=== PATIENT | male | born 1980 | race American Indian/Alaskan Native ===

== ENCOUNTER 2016-07-13 11:49 | Emergency (ER) | payer SELFPAY ==
[2016-07-13 12:16] VITALS: BP 128/92
--- NOTE | 2016-07-13 14:12 | Emergency Department Report ---
ED ENT HPI - General Chief complaint: Earache Stated complaint: DIZZINESS/ POSS EAR INFECTION Time Seen by Provider: 07/13/16 14:04 Source: patient Mode of arrival: Ambulatory Limitations: No Limitations - History of Present Illness MD complaint: ear pain -: Gradual, days(s) - Related Data Previous Rx's Medication Instructions Recorded Last Taken Type Amoxicillin [Amoxicillin TAB] 875 mg PO BID #20 tablet 07/13/16 Unknown Rx Neomy/Polymyx B/Hc (Otic) Soln 4 drops OTIC TID 5 Days 07/13/16 Unknown Rx [Cortisporin (Otic) Soln] Prednisone [predniSONE (Mary) ER 50 mg PO QDAY #5 tablet. 07/13/16 Unknown Rx TAB] traMADol [Ultram 50 MG tab] 50 mg PO Q4HR PRN #12 tablet 07/13/16 Unknown Rx Allergies Allergy/AdvReac Type Severity Reaction Status Date / Time No Known Allergies Allergy Unverified 07/13/16 12:09 ED Dental HPI - General Chief complaint: Earache Stated complaint: DIZZINESS/ POSS EAR INFECTION Time Seen by Provider: 07/13/16 14:04 Source: patient Mode of arrival: Ambulatory Limitations: No Limitations - History of Present Illness MD complaint: tooth pain Severity: moderate Quality: aching Consistency: constant Worsens with: chewing, hot/cold liquids Context- Dental: history of dental caries, poor dental care - Related Data Previous Rx's Medication Instructions Recorded Last Taken Type Amoxicillin [Amoxicillin TAB] 875 mg PO BID #20 tablet 07/13/16 Unknown Rx Neomy/Polymyx B/Hc (Otic) Soln 4 drops OTIC TID 5 Days 07/13/16 Unknown Rx [Cortisporin (Otic) Soln] Prednisone [predniSONE (Mary) ER 50 mg PO QDAY #5 tablet. 07/13/16 Unknown Rx TAB] traMADol [Ultram 50 MG tab] 50 mg PO Q4HR PRN #12 tablet 07/13/16 Unknown Rx Allergies Allergy/AdvReac Type Severity Reaction Status Date / Time No Known Allergies Allergy Unverified 07/13/16 12:09 ED Review of Systems ROS: Stated complaint: DIZZINESS/ POSS EAR INFECTION Other details as noted in HPI Constitutional: denies: chills, fever Eyes: denies: eye pain, eye discharge, vision change ENT: ear pain, throat pain. denies: hearing loss Respiratory: denies: cough, shortness of breath, wheezing Cardiovascular: denies: chest pain, palpitations Endocrine: no symptoms reported Gastrointestinal: denies: abdominal pain, nausea, diarrhea Genitourinary: denies: urgency, dysuria Musculoskeletal: denies: back pain, joint swelling, arthralgia Skin: denies: rash, lesions Neurological: denies: headache, weakness, paresthesias Psychiatric: denies: anxiety, depression Hematological/Lymphatic: denies: easy bleeding, easy bruising ED Past Medical Hx - Surgical History Additional Surgical History: Left Ear - Social History Smoking Status: Never Smoker Substance Use Type: None - Medications Home Medications: Home Medications Medication Instructions Recorded Confirmed Last Taken Type Amoxicillin [Amoxicillin TAB] 875 mg PO BID #20 tablet 07/13/16 Unknown Rx Neomy/Polymyx B/Hc (Otic) Soln 4 drops OTIC TID 5 Days 07/13/16 Unknown Rx [Cortisporin (Otic) Soln] Prednisone [predniSONE (Mary) ER 50 mg PO QDAY #5 tablet.dr 07/13/16 Unknown Rx TAB] traMADol [Ultram 50 MG tab] 50 mg PO Q4HR PRN #12 tablet 07/13/16 Unknown Rx ED Physical Exam - General Limitations: No Limitations General appearance: alert, in no apparent distress - Head Head exam: Present: atraumatic, normocephalic - Eye Eye exam: Present: normal appearance - ENT ENT exam: Present: mucous membranes moist - Expanded ENT Exam Expanded TM/Canal exam: Erythema: Left TM, Bulging: Right TM, Effusion: Right TM, Perforation: Right TM, Loss of Landmarks: Right TM, Foreign Body: Right TM, Cerumen Impaction: Right TM, Mastoid Tenderness: Right TM, Canal Discharge: Right TM, Canal Tenderness: Left TM Throat exam: Positive: tonsillar erythema, tonsillar exudate. Negative: L peritonsillar mass - Neck Neck exam: Present: normal inspection, lymphadenopathy. Absent: tenderness, meningismus, full ROM - Respiratory Respiratory exam: Present: normal lung sounds bilaterally. Absent: respiratory distress - Cardiovascular Cardiovascular Exam: Present: regular rate, normal rhythm. Absent: systolic murmur, diastolic murmur, rubs, gallop - GI/Abdominal GI/Abdominal exam: Present: soft, normal bowel sounds - Rectal Rectal exam: Present: deferred - Extremities Exam Extremities exam: Present: normal inspection - Back Exam Back exam: Present: normal inspection - Neurological Exam Neurological exam: Present: alert, oriented X3 - Psychiatric Psychiatric exam: Present: normal affect, normal mood - Skin Skin exam: Present: warm, dry, intact, normal color. Absent: rash ED Course Vital Signs 07/13/16 12:09 Temperature 97.9 F Pulse Rate 64 Respiratory 18 Rate Blood Pressure 128/92 O2 Sat by Pulse 100 Oximetry Critical care attestation.: If time is entered above; I have spent that time in minutes in the direct care of this critically ill patient, excluding procedure time. ED Disposition Clinical Impression: Tonsillitis Disposition: DISCHARGED TO HOME OR SELFCARE Is pt being admited?: No Condition: Stable Instructions: Otitis Externa (ED) Prescriptions: Amoxicillin [Amoxicillin TAB] 875 mg PO BID #20 tablet Neomy/Polymyx B/Hc (Otic) Soln [Cortisporin (Otic) Soln] 4 drops OTIC TID 5 Days Prednisone [predniSONE (Mary) ER TAB] 50 mg PO QDAY #5 tablet. traMADol [Ultram 50 MG tab] 50 mg PO Q4HR PRN #12 tablet PRN Reason: Pain Referrals: PRIMARY CARE,MD [Primary Care Provider] - 3-5 Days
== END 2016-07-13 15:14 | disposition home or self-care (01) ==
LOC: ED 11:49
DX: J03.90 Acute tonsillitis, unspecified (principal); H92.09 Otalgia, unspecified ear; R42 Dizziness and giddiness; Z98.890 Other specified postprocedural states
CPT/HCPCS: 99282

== ENCOUNTER 2016-08-26 18:54 | Emergency (ER) | payer SELFPAY | END 2016-08-26 19:30 | disposition left against medical advice (07) | LOC: ED 18:54 | DX: R20.0 Anesthesia of skin (principal); Z53.21 Procedure and treatment not carried out due to patient leaving prior to being seen by health care provider ==

== ENCOUNTER 2016-08-27 12:42 | Emergency (ER) | payer SELFPAY ==
[2016-08-27 14:04] VITALS: BP 141/97
--- NOTE | 2016-08-27 14:58 | Emergency Department Report ---
Upper Extremity - [facility] Chief Complaint: Pain General Stated Complaint: NUMBNESS LEFT ARM AND SHOULDER Time Seen by Provider: 08/27/16 14:48 Upper Extremity: Left Shoulder (pain with numbness radiating down to her forearm from left shoulder.) Occurred When: >5 Days (chronic) Mechanism: Unsure (patient said he thinks because he lifts heavy objects at work ) Severity: mild Symptoms: Yes Pain with Movement (shoulder left), Yes Limited Range of Movement (left shoulder), Yes Numbness (numbness radiating down to left forearm), No Deformity, No Weakness, No Swelling, No Bruising/Ecchymosis, No Laceration or Abrasion Other History: Seen here reports that he had left shoulder and arm pain for over the past week that has flared up. He said he said this in the past from injury at work. Patient said he lifts heavy objects at work. He said he can shake it has arm and it makes the pain go away. Denies any loss of sensation. Denies any fever or chills. Pain is 5 out of 10 and achy. ED Review of Systems ROS: Stated complaint: NUMBNESS LEFT ARM AND SHOULDER Other details as noted in HPI Comment: All other systems reviewed and negative Constitutional: denies: chills, fever Respiratory: no symptoms reported Cardiovascular: denies: chest pain, palpitations, edema, syncope Gastrointestinal: denies: abdominal pain, nausea, vomiting Musculoskeletal: arthralgia. denies: back pain, joint swelling, myalgia Skin: denies: rash Neurological: numbness. denies: headache, weakness, paresthesias, confusion, abnormal gait, vertigo ED Past Medical Hx - Past Medical History Previous Medical History?: No - Surgical History Past Surgical History?: Yes Additional Surgical History: Left Ear - Family History Family history: no significant - Social History Smoking Status: Never Smoker Substance Use Type: None - Medications Home Medications: Home Medications Medication Instructions Recorded Confirmed Last Taken Type Amoxicillin [Amoxicillin TAB] 875 mg PO BID #20 tablet 07/13/16 Unknown Rx Neomy/Polymyx B/Hc (Otic) Soln 4 drops OTIC TID 5 Days 07/13/16 Unknown Rx [Cortisporin (Otic) Soln] Prednisone [predniSONE (Mary) ER 50 mg PO QDAY #5 tablet. 07/13/16 Unknown Rx TAB] traMADol [Ultram 50 MG tab] 50 mg PO Q4HR PRN #12 tablet 08/27/16 Unknown Rx Upper Extremity Exam - Exam General: Vital signs noted. No distress. Alert and acting appropriately. This is a 6-year-old male well-nourished well-developed in no acute distress. Head and Torso: No HEENT Abnormality, No Neck Tenderness, No Chest/Lungs Abnormality, No Abdominal Tenderness, No Back Tenderness Shoulder Exam: Yes Normal Range of Motion in Shoulder (patient has full range of motion to her shoulder but he said it hurts to move his left shoulder), No Shoulder Tenderness, No Clavicle Tenderness, No Shoulder Deformity, No AC Joint Tenderness Arm Exam: No Arm/Humerus Tenderness, No Arm Deformity Elbow: Yes Normal Range of Motion in Elbow, No Elbow Tenderness, No Elbow Deformity Forearm: No Forearm Tenderness, No Forearm Deformity, No Pain with Pronation, No Pain with Supination Wrist: Yes Normal ROM in Wrist, No Wrist Tenderness, No Wrist Deformity, No Snuffbox Tenderness, No Pain with Axial Thumb Compression Hand: Yes Normal ROM in Digit(s), No Hand Tenderness, No Hand Deformity, No Digit Tenderness, No Digit(s) Deformity, No Tendon Dysfunction CMS Exam: Yes Normal Distal Pulses, Yes Normal Capillary Refill, Yes Normal Distal Sensation, No Broken Skin ED Course Vital Signs 08/27/16 14:02 Temperature 98.1 F Pulse Rate 68 Respiratory 18 Rate Blood Pressure 141/97 O2 Sat by Pulse 100 Oximetry - Reevaluation(s) Reevaluation #1: 08/27/16 16:37 Given Decadron 10 mg IM and emergency room. ED Medical Decision Making - Medical Decision Making ED course: She was arthralgia left shoulder and also radiculopathy. This is chronic in nature and patient was referred to orthopedic doctor in the past but he said he didn't go. I discussed with him that it is important for him to follow up with orthopedic doctor because she may need an MRI to look at his shoulder for rotator cuff injury. Patient is given Decadron 10 mg IM and discharged home with prescription for Ultram. Critical care attestation.: If time is entered above; I have spent that time in minutes in the direct care of this critically ill patient, excluding procedure time. ED Disposition Clinical Impression: Arthralgia of left shoulder region, Radicular pain of left upper extremity Disposition: DISCHARGED TO HOME OR SELFCARE Is pt being admited?: No Does the pt Need Aspirin: No Condition: Stable Instructions: Paresthesia (ED), Arthralgia (ED) Additional Instructions: Please follow up with Orthopedic Doctor as instructed Take pain medicine as instructed Prescriptions: traMADol [Ultram 50 MG tab] 50 mg PO Q4HR PRN #12 tablet PRN Reason: Pain Referrals: RYAN AUSTIN MD [Staff Physician] - 08/30/16 Forms: Work/School Release Form(ED)
[2016-08-27] MEDS ORDERED: DECADRON IM STA (14:59)
== END 2016-08-27 17:08 | disposition home or self-care (01) ==
LOC: ED 12:42
DX: M25.512 Pain in left shoulder (principal); M54.10 Radiculopathy, site unspecified
CPT/HCPCS: 96372; 99282; J1100

== ENCOUNTER 2016-09-30 14:39 | Emergency (ER) | payer BC, OTHER ==
[2016-09-30 14:58] VITALS: BP 143/96
[2016-09-30] MEDS ORDERED: MOTRIN PO ONE (16:43)
[2016-09-30] MEDS ORDERED: FLEXERIL PO ONE (16:43)
--- NOTE | 2016-09-30 17:03 | Emergency Department Report ---
Entered by COCO COTA, acting as scribe for DARSHAN RYAN PA. ED Upper Extremity Inj HPI - General Chief Complaint: Shoulder Injury Stated Complaint: DISLOCATED LT SHOULDER Time Seen by Provider: 09/30/16 16:16 Source: patient Mode of arrival: Ambulatory Limitations: No Limitations - History of Present Illness Initial Comments: 36 y/o male patient with no significant PMHx presents to the ED c/o left shoulder pain that began 2 weeks ago. Patient states his pain was caused by lifting boxes at work. Rates pain a 10/10 in severity, which he describes as sharp in quality. Aggravated with movement and alleviated with immobilization. Denies neck pain, weakness, numbness, and tingling. Took Extra Strength Tylenol with some relief. Patient notes that he has an appointment on 10/04/2016 for left shoulder. NKDA. CAIN Complaint: Injury to:: left, shoulder Onset/Timin -: week(s) Other Extremity Injury: Shoulder: Left Other Injuries: none Handedness: right Place: work Severity scale (0 -10): 10 Improves With: immobilization, medication (Extra strength Tylenol) Worsens With: movement of extremity Context: other (lifting boxes daily) Associated Symptoms: denies other symptoms. denies: weakness, numbness, neck pain, nausea/vomiting, heard/felt popping sensat - Related Data Previous Rx's Medication Instructions Recorded Last Taken Type Amoxicillin [Amoxicillin TAB] 875 mg PO BID #20 tablet 07/13/16 Unknown Rx Neomy/Polymyx B/Hc (Otic) Soln 4 drops OTIC TID 5 Days 07/13/16 Unknown Rx [Cortisporin (Otic) Soln] Prednisone [predniSONE (Mary) ER 50 mg PO QDAY #5 tablet. 07/13/16 Unknown Rx TAB] traMADol [Ultram 50 MG tab] 50 mg PO Q4HR PRN #12 tablet 08/27/16 Unknown Rx Cyclobenzaprine [Flexeril 10 MG 10 mg PO QHS #20 tablet 09/30/16 Unknown Rx TAB] Diclofenac Sodium 50 mg PO BID #30 tablet. 09/30/16 Unknown Rx Allergies Allergy/AdvReac Type Severity Reaction Status Date / Time No Known Allergies Allergy Unverified 07/13/16 12:09 ED Review of Systems Comment: All other systems reviewed and negative Constitutional: no symptoms reported. denies: chills, fever Respiratory: no symptoms reported. denies: cough, shortness of breath, wheezing Cardiovascular: denies: chest pain, palpitations Endocrine: no symptoms reported Musculoskeletal: arthralgia (left shoulder pain). denies: back pain, joint swelling, other (neck pain) Skin: denies: rash, lesions Neurological: denies: headache, weakness, numbness ED Past Medical Hx - Past Medical History Previous Medical History?: No - Surgical History Past Surgical History?: Yes Additional Surgical History: Left Ear - Social History Smoking Status: Never Smoker Substance Use Type: None - Medications Home Medications: Home Medications Medication Instructions Recorded Confirmed Last Taken Type Amoxicillin [Amoxicillin TAB] 875 mg PO BID #20 tablet 07/13/16 Unknown Rx Neomy/Polymyx B/Hc (Otic) Soln 4 drops OTIC TID 5 Days 07/13/16 Unknown Rx [Cortisporin (Otic) Soln] Prednisone [predniSONE (Mary) ER 50 mg PO QDAY #5 tablet. 07/13/16 Unknown Rx TAB] traMADol [Ultram 50 MG tab] 50 mg PO Q4HR PRN #12 tablet 08/27/16 Unknown Rx Cyclobenzaprine [Flexeril 10 MG 10 mg PO QHS #20 tablet 09/30/16 Unknown Rx TAB] Diclofenac Sodium 50 mg PO BID #30 tablet. 09/30/16 Unknown Rx ED Physical Exam - General Limitations: No Limitations General appearance: alert, in no apparent distress - Head Head exam: Present: atraumatic, normocephalic - Eye Eye exam: Present: normal appearance, EOMI Pupils: Present: normal accommodation - ENT ENT exam: Present: normal exam, mucous membranes moist - Neck Neck exam: Present: normal inspection, full ROM. Absent: tenderness, meningismus, lymphadenopathy - Respiratory Respiratory exam: Present: normal lung sounds bilaterally. Absent: respiratory distress, wheezes, rales, rhonchi, stridor - Cardiovascular Cardiovascular Exam: Present: regular rate, normal rhythm. Absent: systolic murmur, diastolic murmur, rubs, gallop - GI/Abdominal GI/Abdominal exam: Present: soft, normal bowel sounds - Extremities Exam Extremities exam: Present: full ROM (limited ROM in left shoulder due to pain), tenderness (left shoulder tenderness), normal capillary refill. Absent: pedal edema, joint swelling - Expanded Upper Extremity Exam Left Shoulder Exam: Present: full ROM (limited ROM due to left shoulder pain), tenderness. Absent: swelling, abrasion, laceration, ecchymosis, deformity, crepidus, dislocation, erythema, tenderness over AC joint Upper Arm exam: Present: normal inspection, full ROM Elbow exam: Present: normal inspection, full ROM Forearm Wrist exam: Present: normal inspection, full ROM Hand Wrist exam: Present: normal inspection, full ROM Neuro motor exam: Present: wrist extension intact, thumb opposition intact, thumb IP flexion intact, thumb adduction intact, fingers 2-5 abduction intact Neurosensory exam: Present: 2-point discrimination, radial nerve intact, ulnar nerve intact, median nerve intact Vascular: Present: normal capillary refill, radial pulse (2+), brachial pulse (2 +), ulnar pulse (2+). Absent: vascular compromise, Pallo, pulse deficit radial art, pulse deficit ulnar art, pulse deficit brachial art - Back Exam Back exam: Present: normal inspection - Neurological Exam Neurological exam: Present: alert, oriented X3 - Psychiatric Psychiatric exam: Present: normal affect, normal mood - Skin Skin exam: Present: warm, dry, intact. Absent: rash ED Course Vital Signs 09/30/16 14:55 Temperature 97.6 F Pulse Rate 87 Respiratory 18 Rate Blood Pressure 143/96 O2 Sat by Pulse 99 Oximetry ED Medical Decision Making - Medical Decision Making 36-year-old male presents with left shoulder pain for 2 weeks. ED course: Patient was given a muscle relaxer and Motrin in ED . Patient is not ill-appearing. Discussed the follow-up with his scheduled appointment with orthopedic on 2016. Discuss his symptoms return or worsen to return to the ED Patient states understanding and will follow instructions. Vital signs stable. Patient is in no acute distress. ED Disposition Clinical Impression: Muscle strain of left shoulder Qualifiers: Encounter type: initial encounter Qualified Code(s): S46.912A - Strain of unspecified muscle, fascia and tendon at shoulder and upper arm level, left arm , initial encounter Disposition: TO HOME OR SELFCARE Is pt being admited?: No Does the pt Need Aspirin: No Condition: Stable Instructions: Rotator Cuff Injury (ED), Muscle Strain (ED), Musculoskeletal Pain (ED) Prescriptions: Cyclobenzaprine [Flexeril 10 MG TAB] 10 mg PO QHS #20 tablet Diclofenac Sodium 50 mg PO BID #30 tablet. Referrals: PRIMARY CARE, [Primary Care Provider] - 3-5 Days [facility] [Outside] - 3-5 Days [facility] [Outside] - 3-5 Days [facility] [Outside] - 3-5 Days Forms: Accompanied Note, Work/School Release Form(ED) Time of Disposition: 17:01 This documentation as recorded by the CIPRIANO colby JASMINE,accurately reflects the service I personally performed and the decisions made by ,DARSHAN RYAN PA.
== END 2016-09-30 17:10 | disposition home or self-care (01) ==
LOC: ED 14:39
DX: S46.912A Strain of unspecified muscle, fascia and tendon at shoulder and upper arm level, left arm, initial encounter (principal); X50.0XXA Overexertion from strenuous movement or load, initial encounter; X50.9XXA Other and unspecified overexertion or strenuous movements or postures, initial encounter; Y93.89 Activity, other specified; Y99.8 Other external cause status; Y92.89 Other specified places as the place of occurrence of the external cause
CPT/HCPCS: 99282

== ENCOUNTER 2017-08-31 18:52 | Emergency (ER) | payer SELFPAY ==
[2017-08-31 19:22] VITALS: BP 141/101
[2017-08-31] MEDS ORDERED: DECADRON ONE (19:25)
[2017-08-31] MEDS ORDERED: BENADRYL PO ONE ×2 (19:25→19:37)
[2017-08-31] MEDS ORDERED: PEPCID ONE (19:25)
[2017-08-31] MEDS ORDERED: PEPCID PO ONE (19:37)
[2017-08-31] MEDS ORDERED: DECADRON IM ONE (19:37)
== END 2017-08-31 23:36 | disposition left against medical advice (07) ==
LOC: ED 18:52
DX: R22.0 Localized swelling, mass and lump, head (principal); Z53.21 Procedure and treatment not carried out due to patient leaving prior to being seen by health care provider
CPT/HCPCS: J1100

== ENCOUNTER 2018-06-07 19:48 | Emergency (ER) | payer MEDICARE ==
--- NOTE | 2018-06-07 19:57 | Emergency Department Report ---
Blank Doc - Documentation Documentation: This is a 37-year-old male that presents with URI symptoms. Denies any cough. Denies any other complaints. This initial assessment diagnostic orders/clinical plan/treatment(s) is/are subject to change based on patient's health status, clinical progression and re- assessment by fellow clinical providers in the ED. Further treatment and workup at subsequent clinical providers discretion. Patient/guardians urged not to elope from ED s their condition may be serious if not clinically assessed and managed. Initial orders include: 1-Patient sent to MAIN for further evaluation and treatment
[2018-06-07 19:58] VITALS: BP 138/100
[2018-06-07] MEDS ORDERED: TYLENOL PO ONE (20:46)
[2018-06-07] MEDS ORDERED: MUCINEX ER PO ONE (20:46)
[2018-06-07] MEDS ORDERED: IBUPROFEN PO ONE (20:46)
--- NOTE | 2018-06-07 20:47 | Emergency Department Report ---
ED General Adult HPI - General Chief complaint: Upper Respiratory Infection Stated complaint: COLD SX EAR ACHE Time Seen by Provider: 06/07/18 19:55 Source: patient, RN notes reviewed Mode of arrival: Ambulatory Limitations: No Limitations - History of Present Illness Initial comments: This is a pleasant 37-year-old gentleman, not known to this provider previously, does not have a primary care doctor. The patient presents to the emergency room with a sensation of head congestion, ears congestion, runny nose with mucus. Symptoms present for the past week. No relief with [id number] interventions. The patient endorses sick contacts in his significant other, who is also a patient today, I also took care of, who also has similar symptoms. Symptoms intermittent, did not radiate anywhere, did not appear to have exacerbating or relieving factors. Denies other complaints. -: Gradual Location: head, face, mouth Radiation: non-radiation Severity scale (0 -10): 8 Quality: aching Consistency: intermittent Improves with: other Worsens with: other Associated Symptoms: cough, malaise. denies: confusion, chest pain, diaphoresis, fever/chills, headaches, loss of appetite, nausea/vomiting, rash, seizure, shortness of breath, syncope, weakness - Related Data Previous Rx's Medication Instructions Recorded Last Taken Type Amoxicillin [Amoxicillin TAB] 875 mg PO BID #20 tablet 07/13/16 Unknown Rx Neomy/Polymyx B/Hc (Otic) Soln 4 drops OTIC TID 5 Days bottle 07/13/16 Unknown Rx [Cortisporin (Otic) Soln] Prednisone [predniSONE (Mary) ER 50 mg PO QDAY #5 tablet. 07/13/16 Unknown Rx TAB] traMADol [Ultram 50 MG tab] 50 mg PO Q4HR PRN #12 tablet 08/27/16 Unknown Rx Cyclobenzaprine [Flexeril 10 MG 10 mg PO QHS #20 tablet 09/30/16 Unknown Rx TAB] Diclofenac Sodium 50 mg PO BID #30 tablet. 09/30/16 Unknown Rx Azithromycin [Zithromax Z-BENJI] 250 mg PO DAILY #6 tab 04/15/18 Unknown Rx Acetaminophen [Tylenol Arthritis] 650 mg PO Q6HR PRN #30 tablet.er 06/07/18 Unknown Rx Chlorhexidine Mouthwash [Peridex] 15 ml MM BID #1 bottle 06/07/18 Unknown Rx Fluticasone [Flonase] 1 spray NS QDAY #1 bottle 06/07/18 Unknown Rx Ibuprofen [Motrin] 600 mg PO Q8H PRN #30 tablet 06/07/18 Unknown Rx guaiFENesin [Mucinex] 600 mg PO BID #30 tab.er.12h 06/07/18 Unknown Rx Allergies Allergy/AdvReac Type Severity Reaction Status Date / Time No Known Allergies Allergy Unverified 07/13/16 12:09 ED Review of Systems ROS: Stated complaint: COLD SX EAR ACHE Other details as noted in HPI Constitutional: malaise. denies: fever Eyes: denies: eye discharge ENT: congestion. denies: throat pain, epistaxis Respiratory: cough Cardiovascular: denies: chest pain Gastrointestinal: denies: abdominal pain Musculoskeletal: denies: back pain Neurological: weakness ED Past Medical Hx - Past Medical History Previous Medical History?: No - Surgical History Additional Surgical History: Left Ear - Social History Smoking Status: Never Smoker Substance Use Type: None - Medications Home Medications: Home Medications Medication Instructions Recorded Confirmed Last Taken Type Amoxicillin [Amoxicillin TAB] 875 mg PO BID #20 tablet 07/13/16 Unknown Rx Neomy/Polymyx B/Hc (Otic) Soln 4 drops OTIC TID 5 Days bottle 07/13/16 Unknown Rx [Cortisporin (Otic) Soln] Prednisone [predniSONE (Mary) ER 50 mg PO QDAY #5 tablet. 07/13/16 Unknown Rx TAB] traMADol [Ultram 50 MG tab] 50 mg PO Q4HR PRN #12 tablet 08/27/16 Unknown Rx Cyclobenzaprine [Flexeril 10 MG 10 mg PO QHS #20 tablet 09/30/16 Unknown Rx TAB] Diclofenac Sodium 50 mg PO BID #30 tablet. 09/30/16 Unknown Rx Azithromycin [Zithromax Z-BENJI] 250 mg PO DAILY #6 tab 04/15/18 Unknown Rx Acetaminophen [Tylenol Arthritis] 650 mg PO Q6HR PRN #30 tablet.er 06/07/18 Unknown Rx Chlorhexidine Mouthwash [Peridex] 15 ml MM BID #1 bottle 06/07/18 Unknown Rx Fluticasone [Flonase] 1 spray NS QDAY #1 bottle 06/07/18 Unknown Rx Ibuprofen [Motrin] 600 mg PO Q8H PRN #30 tablet 06/07/18 Unknown Rx guaiFENesin [Mucinex] 600 mg PO BID #30 tab.er.12h 06/07/18 Unknown Rx ED Physical Exam - General Limitations: No Limitations General appearance: alert, in no apparent distress - Head Head exam: Present: atraumatic, normocephalic - Eye Eye exam: Present: normal appearance, PERRL, EOMI. Absent: nystagmus - ENT ENT exam: Present: normal exam, normal orophraynx, mucous membranes moist, TM's normal bilaterally, normal external ear exam, other (patient has poor dentition. Patient has a fracture in tooth #17. Appears to be chronic. There is no gingival abscess. There is no stridor or dysphonia.) - Neck Neck exam: Present: normal inspection, full ROM. Absent: tenderness, meningismus - Respiratory Respiratory exam: Present: normal lung sounds bilaterally. Absent: respiratory distress - Cardiovascular Cardiovascular Exam: Present: regular rate, normal rhythm, normal heart sounds. Absent: bradycardia, tachycardia, irregular rhythm, systolic murmur, diastolic murmur, rubs, gallop - GI/Abdominal GI/Abdominal exam: Present: soft. Absent: distended, tenderness, guarding, rebound, rigid, pulsatile mass - Rectal Rectal exam: Present: deferred - Extremities Exam Extremities exam: Present: normal inspection, full ROM, other (2+ pulses noted in the bilateral upper, lower extremities. Compartments soft. No long bony tenderness. The pelvis is stable.). Absent: pedal edema, joint swelling, calf tenderness - Back Exam Back exam: Present: normal inspection, full ROM. Absent: paraspinal tenderness, vertebral tenderness - Neurological Exam Neurological exam: Present: alert, oriented X3, CN II-XII intact, normal gait, other (Extraocular movements intact. Tongue midline. No facial droop. Facial sensation intact to light touch in the V1, V2, V3 distribution bilaterally. 5 and 5 strength in 4 extremities.. Sensation is intact to light touch in 4 extremities.). Absent: motor sensory deficit - Psychiatric Psychiatric exam: Present: normal affect, normal mood - Skin Skin exam: Present: warm, dry, intact, normal color. Absent: rash ED Course Vital Signs 06/07/18 19:54 Temperature 97.7 F Pulse Rate 73 Respiratory 16 Rate Blood Pressure 138/100 O2 Sat by Pulse 97 Oximetry ED Medical Decision Making - Lab Data Vital Signs 06/07/18 19:54 Temperature 97.7 F Pulse Rate 73 Respiratory 16 Rate Blood Pressure 138/100 O2 Sat by Pulse 97 Oximetry - Medical Decision Making Differential diagnosis, including but not limited to: Viral syndrome, upper respiratory tract infection, dental caries Assessment and plan: 37-year-old gentleman who is well appearing with probable upper respiratory tract infection, viral syndrome, and chronic dental Carlita. The patient is afebrile, with reassuring vital signs, and in no acute distress. Patient given appropriate guidance and anticipatory counseling. He will be discharged with medications for symptoms, he is counseled to use a vaporizer, humidifier, or inhale shower steam, and to follow up with a dentist for his dental carry. He does not appear to have an emergent medical condition at this time, and he is suitable to follow-up as an outpatient. Critical care attestation.: If time is entered above; I have spent that time in minutes in the direct care of this critically ill patient, excluding procedure time. ED Disposition Clinical Impression: Dental caries, URI (upper respiratory infection) Disposition: DC-01 TO HOME OR SELFCARE Is pt being admited?: No Does the pt Need Aspirin: No Condition: Good Instructions: Viral Syndrome (ED) Additional Instructions: Take the medications as needed/directed. Symptoms likely stemming from cold/virus, and do not currently represent a dangerous or life-threatening condition. Symptoms will likely last 3-4 weeks. Use vaporizer, humidifier as directed. Follow up with the primary care doctor within the next month. Follow up with a dentist within the next month. Return to the emergency room right away with new, worsening or different symptoms. Referrals: [facility] [Provider Group] - as needed MARIEBLL BONNER MD [Primary Care Provider] - as needed [facility] [Outside] - as needed
== END 2018-06-07 21:21 | disposition home or self-care (01) ==
LOC: ED 19:48
DX: K02.9 Dental caries, unspecified (principal); J06.9 Acute upper respiratory infection, unspecified
CPT/HCPCS: 99282

== ENCOUNTER 2018-08-28 14:03 | Emergency (ER) | payer MEDICAID, MEDICARE ==
[2018-08-28 14:25] VITALS: BP 144/88
--- NOTE | 2018-08-28 16:17 | Emergency Department Report ---
ED Back Pain/Injury HPI - General Chief Complaint: Back Pain/Injury Stated Complaint: LOWER BACK PAIN Time Seen by Provider: 08/28/18 15:30 Source: patient Limitations: No Limitations - History of Present Illness Initial Comments: This is a 38-year-old male presents to ED complaining of lower back pain that started Tuesday. Patient states that he was moving furniture around in house and Inc. he was lifting heavy furniture the wrong way without using his knees. Patient states that he thinks he has strained his lower back. He denies dysuria, fever, fall trauma. MD Complaint: back pain - Related Data Previous Rx's Medication Instructions Recorded Last Taken Type Amoxicillin [Amoxicillin TAB] 875 mg PO BID #20 tablet 07/13/16 Unknown Rx Neomy/Polymyx B/Hc (Otic) Soln 4 drops OTIC TID 5 Days bottle 07/13/16 Unknown Rx [Cortisporin (Otic) Soln] Prednisone [predniSONE (Mary) ER 50 mg PO QDAY #5 tablet. 07/13/16 Unknown Rx TAB] traMADol [Ultram 50 MG tab] 50 mg PO Q4HR PRN #12 tablet 08/27/16 Unknown Rx Azithromycin [Zithromax Z-BENJI] 250 mg PO DAILY #6 tab 04/15/18 Unknown Rx Acetaminophen [Tylenol Arthritis] 650 mg PO Q6HR PRN #30 tablet.er 06/07/18 Unknown Rx Chlorhexidine Mouthwash [Peridex] 15 ml MM BID #1 bottle 06/07/18 Unknown Rx Fluticasone [Flonase] 1 spray NS QDAY #1 bottle 06/07/18 Unknown Rx Ibuprofen [Motrin] 600 mg PO Q8H PRN #30 tablet 06/07/18 Unknown Rx guaiFENesin [Mucinex] 600 mg PO BID #30 tab.er.12h 06/07/18 Unknown Rx Cyclobenzaprine [Flexeril 10 MG 10 mg PO QHS #15 tablet 08/28/18 Unknown Rx TAB] Diclofenac Sodium 50 mg PO BID #30 tablet. 08/28/18 Unknown Rx Allergies Allergy/AdvReac Type Severity Reaction Status Date / Time No Known Allergies Allergy Unverified 07/13/16 12:09 ED Review of Systems ROS: Stated complaint: LOWER BACK PAIN Other details as noted in HPI Comment: All other systems reviewed and negative ED Past Medical Hx - Past Medical History Previous Medical History?: No - Surgical History Past Surgical History?: No Additional Surgical History: Left Ear - Social History Smoking Status: Never Smoker Substance Use Type: None - Medications Home Medications: Home Medications Medication Instructions Recorded Confirmed Last Taken Type Amoxicillin [Amoxicillin TAB] 875 mg PO BID #20 tablet 07/13/16 Unknown Rx Neomy/Polymyx B/Hc (Otic) Soln 4 drops OTIC TID 5 Days bottle 07/13/16 Unknown Rx [Cortisporin (Otic) Soln] Prednisone [predniSONE (Mary) ER 50 mg PO QDAY #5 tablet. 07/13/16 Unknown Rx TAB] traMADol [Ultram 50 MG tab] 50 mg PO Q4HR PRN #12 tablet 08/27/16 Unknown Rx Azithromycin [Zithromax Z-BENJI] 250 mg PO DAILY #6 tab 04/15/18 Unknown Rx Acetaminophen [Tylenol Arthritis] 650 mg PO Q6HR PRN #30 tablet.er 06/07/18 Unknown Rx Chlorhexidine Mouthwash [Peridex] 15 ml MM BID #1 bottle 06/07/18 Unknown Rx Fluticasone [Flonase] 1 spray NS QDAY #1 bottle 06/07/18 Unknown Rx Ibuprofen [Motrin] 600 mg PO Q8H PRN #30 tablet 06/07/18 Unknown Rx guaiFENesin [Mucinex] 600 mg PO BID #30 tab.er.12h 06/07/18 Unknown Rx Cyclobenzaprine [Flexeril 10 MG 10 mg PO QHS #15 tablet 08/28/18 Unknown Rx TAB] Diclofenac Sodium 50 mg PO BID #30 tablet. 08/28/18 Unknown Rx ED Physical Exam - General Limitations: No Limitations General appearance: alert, in no apparent distress - Head Head exam: Present: atraumatic, normocephalic - Eye Eye exam: Present: normal appearance - ENT ENT exam: Present: mucous membranes moist - Neck Neck exam: Present: normal inspection - Respiratory Respiratory exam: Present: normal lung sounds bilaterally. Absent: respiratory distress - Cardiovascular Cardiovascular Exam: Present: regular rate, normal rhythm. Absent: systolic murmur, diastolic murmur, rubs, gallop - GI/Abdominal GI/Abdominal exam: Present: soft, normal bowel sounds - Rectal Rectal exam: Present: deferred - Extremities Exam Extremities exam: Present: normal inspection - Back Exam Back exam: Present: normal inspection, full ROM, tenderness (palpation of the latissimus dorsi muscles of the lower back). Absent: CVA tenderness (R), CVA tenderness (L) - Neurological Exam Neurological exam: Present: alert, oriented X3 - Psychiatric Psychiatric exam: Present: normal affect, normal mood - Skin Skin exam: Present: warm, dry, intact, normal color. Absent: rash ED Course Vital Signs 08/28/18 14:24 Temperature 98.4 F Pulse Rate 75 Respiratory 16 Rate Blood Pressure 144/88 O2 Sat by Pulse 98 Oximetry ED Medical Decision Making - Medical Decision Making 38-year-old female presents to ED with myalgia /lower back strain ED course: Vital signs are normal patient is in no acute distress Discussed with patient follow-up with primary care physician. Discussed the patient and take medications as prescribed. Patient has no neurological deficit. Patient is alert and oriented 3 and understands all instructions given. Discussed drowsiness effect of Flexeril makes her drowsy and not to operate machinery while taking flexeril Critical care attestation.: If time is entered above; I have spent that time in minutes in the direct care of this critically ill patient, excluding procedure time. ED Disposition Clinical Impression: Strain of muscle, fascia and tendon of lower back, initial encounter Disposition: TO HOME OR SELFCARE Is pt being admited?: No Does the pt Need Aspirin: No Condition: Stable Instructions: Muscle Strain (ED) Additional Instructions: Make sure to follow up with the primary care physician as discussed. Take all your medications as you've been prescribed. If you have any worsening symptoms or develop new symptoms please return to ED immediately. Prescriptions: Cyclobenzaprine [Flexeril 10 MG TAB] 10 mg PO QHS #15 tablet Diclofenac Sodium 50 mg PO BID #30 tablet.dr Referrals: KRIS ARCINIEGA MD [Primary Care Provider] - 3-5 Days Forms: Work/School Release Form(ED) Time of Disposition: 16:20
== END 2018-08-28 16:30 | disposition home or self-care (01) ==
LOC: ED 14:03
DX: S39.012A Strain of muscle, fascia and tendon of lower back, initial encounter (principal); X50.0XXA Overexertion from strenuous movement or load, initial encounter; Y93.89 Activity, other specified; Y92.098 Other place in other non-institutional residence as the place of occurrence of the external cause; Y99.8 Other external cause status
CPT/HCPCS: 99282

== ENCOUNTER 2018-09-21 09:31 | Emergency (ER) | payer MEDICARE ==
[2018-09-21 09:53] VITALS: BP 129/92
--- NOTE | 2018-09-21 10:51 | XRay Report ---
ROUTINE CHEST, TWO VIEWS: HISTORY: Productive cough. The trachea, heart, mediastinal contour, lung saldana and bony thorax are unremarkable. IMPRESSION: Unremarkable chest x-ray.
--- NOTE | 2018-09-21 11:33 | Emergency Department Report ---
Minor Respiratory - HPI Chief Complaint: Upper Respiratory Infection Stated Complaint: COLD LIKE SYM Time Seen by Provider: 09/21/18 10:12 Duration: 3 Days Pain Location: Chest Severity: moderate Minor Respiratory: Yes Rhinorrhea, Yes Able to Tolerate Fluids, Yes Cough (productive of green sputum), Yes Chest Pain (with coughing), Yes Fever, No Sore Throat, No Ear Pain, No Sick Contacts, No Hemoptysis, No Shortness of Breath Other History: Patient is around cigarette smoke ED Review of Systems ROS: Stated complaint: COLD LIKE SYM Other details as noted in HPI Comment: All other systems reviewed and negative ED Past Medical Hx - Past Medical History Previous Medical History?: No - Surgical History Past Surgical History?: No Additional Surgical History: Left Ear - Social History Smoking Status: Never Smoker Substance Use Type: None - Medications Home Medications: Home Medications Medication Instructions Recorded Confirmed Last Taken Type Amoxicillin [Amoxicillin TAB] 875 mg PO BID #20 tablet 07/13/16 Unknown Rx Neomy/Polymyx B/Hc (Otic) Soln 4 drops OTIC TID 5 Days bottle 07/13/16 Unknown Rx [Cortisporin (Otic) Soln] Prednisone [predniSONE (Mary) ER 50 mg PO QDAY #5 tablet. 07/13/16 Unknown Rx TAB] traMADol [Ultram 50 MG tab] 50 mg PO Q4HR PRN #12 tablet 08/27/16 Unknown Rx Azithromycin [Zithromax Z-BENJI] 250 mg PO DAILY #6 tab 04/15/18 Unknown Rx Acetaminophen [Tylenol Arthritis] 650 mg PO Q6HR PRN #30 tablet.er 06/07/18 Unknown Rx Chlorhexidine Mouthwash [Peridex] 15 ml MM BID #1 bottle 06/07/18 Unknown Rx Fluticasone [Flonase] 1 spray NS QDAY #1 bottle 06/07/18 Unknown Rx Ibuprofen [Motrin] 600 mg PO Q8H PRN #30 tablet 06/07/18 Unknown Rx guaiFENesin [Mucinex] 600 mg PO BID #30 tab.er.12h 06/07/18 Unknown Rx Cyclobenzaprine [Flexeril 10 MG 10 mg PO QHS #15 tablet 08/28/18 Unknown Rx TAB] Diclofenac Sodium 50 mg PO BID #30 tablet. 08/28/18 Unknown Rx Triamcinolone 0.1% [Kenalog 0.1% 1 applic TP TID #1 tube 08/28/18 Unknown Rx CREAM] ALBUTEROL Inhaler (OR & NICU) 2 puff IH QID PRN #1 inhalation 09/21/18 Unknown Rx [ProAir HFA Inhaler] Azithromycin [Zithromax Z-BENJI] 250 mg PO DAILY #6 tablet 09/21/18 Unknown Rx guaiFENesin/CODEINE [Robitussin AC] 10 ml PO Q6HR PRN #100 oral.liqd 09/21/18 Unknown Rx predniSONE [Deltasone] 20 mg PO QDAY #5 tab 09/21/18 Unknown Rx Minor Respiratory Exam - Exam General: Vital signs noted. No distress. Alert and acting appropriately. HEENT: Yes Moist Mucous Membranes, No Pharyngeal Erythema, No Pharyngeal Exudates, No Rhinorrhea, No Conjuctival Injection, No Frontal Tenderness, No Maxillary Tenderness Ear: Neither TM Bulge, Neither TM Erythema, Neither EAC Pain, Neither EAC Discharge Neck: Yes Supple, No Adenopathy Lungs: Yes Good Air Exchange, Yes Ronchi, Yes Cough, No Wheezes, No Stridor, No Labored Respirations, No Retractions, No Use of Accessory Muscles, No Other Abnormal Lung Sounds Heart: Yes Regular, No Murmur Abdomen: Yes Normal Bowel Sounds, No Tenderness, No Peritoneal Signs Skin: No Rash, No Edema Neurologic: Alert and oriented, no deficits. Musculoskeletal: Unremarkable. ED Course Vital Signs 09/21/18 09:50 Temperature 97.4 F L Pulse Rate 68 Respiratory 18 Rate Blood Pressure 129/92 O2 Sat by Pulse 97 Oximetry ED Medical Decision Making - Radiology Data interpreted by me: CXR has a slight haziness in the right middle lobe that could be early pneumonia or atelectasis [facility] [address] [place] [address] XRay Report Signed Patient: DAYRON KIM MR# : [id number] : 1980 Acct:[id number] Age/Sex: 38 / M ADM Date: 09/21/18 Loc: ED Attending Dr: Ordering Physician: KRISTINE TOWSNEND MD Date of Service: 09/21/18 Procedure(s): XR chest routine 2V Accession Number(s): [id number] cc: KRISTINE TOWNSEND MD Fluoro Time In Minutes: ROUTINE CHEST, TWO VIEWS: HISTORY: Productive cough. The trachea, heart, mediastinal contour, lung saldana and bony thorax are unremarkable. IMPRESSION: Unremarkable chest x-ray. Transcribed By: TTR Dictated By: RAYMUNDO WEEMS JR, MD Electronically Authenticated By: RAYMUNDO WEEMS JR, MD Signed Date/Time: 09/21/181045 DD/ 45 TD/TT: 09/21/18 104 - Medical Decision Making Patient is a 38-year-old male whose presenting with productive cough fever for the last 3-4 days. Patient does have secondhand smoke exposure. Per my interpretation of the patient's chest x-ray he does have rales very slight haziness in the right middle lobe. This likely is atelectasis however. Early pneumonia could not be ruled out. Patient will be started on azithromycin as well as medications for symptomatic relief. Critical care attestation.: If time is entered above; I have spent that time in minutes in the direct care of this critically ill patient, excluding procedure time. ED Disposition Clinical Impression: Atypical pneumonia Disposition: DC-01 TO HOME OR SELFCARE Is pt being admited?: No Does the pt Need Aspirin: No Condition: Stable Instructions: Bacterial Pneumonia (ED) Time of Disposition: 11:34
== END 2018-09-21 11:46 | disposition home or self-care (01) ==
LOC: ED 09:31
DX: J18.9 Pneumonia, unspecified organism (principal); Z88.0 Allergy status to penicillin; Z79.899 Other long term (current) drug therapy
CPT/HCPCS: 71046; 99283

== ENCOUNTER 2018-11-16 14:19 | Emergency (ER) | payer MEDICARE ==
--- NOTE | 2018-11-16 14:31 | Emergency Department Report ---
Blank Doc - Documentation Documentation: This is a 38-year-old male that presents with lower back pain after heavy lift ing. Denies any injuries or urinary symptoms. This initial assessment/diagnostic orders/clinical plan/treatment(s) is/are subject to change based on patient's health status, clinical progression and re- assessment by fellow clinical providers in the ED. Further treatment and workup at subsequent clinical providers discretion. Patient/guardians urged not to elope from the ED as their condition may be serious if not clinically assessed and managed. Initial orders include: 1- Patient sent to [facility] for further evaluation and treatment
[2018-11-16 14:41] VITALS: BP 165/102
--- NOTE | 2018-11-16 15:03 | Emergency Department Report ---
ED Back Pain/Injury HPI - General Chief Complaint: Back Pain/Injury Stated Complaint: BACK PAIN Time Seen by Provider: 11/16/18 14:29 Source: patient Limitations: No Limitations - History of Present Illness Initial Comments: Santos is a pleasant healthy 38-year-old male who presents with lower back pain for the last week. 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 Mild to moderate bilateral lower back pain strain and dull. No radiation. He requests muscle relaxers. Also he requests prescription for steroid cream. He has recurrent facial rash. MD Complaint: back pain -: Gradual, week(s) (1) Similar Symptoms Previously: Yes Place: work Severity: moderate Quality: dull Consistency: constant Worsens With: movement Associated Symptoms: denies other symptoms. denies: confusion, weakness, chest pain, numbness - Related Data Previous Rx's Medication Instructions Recorded Last Taken Type Amoxicillin [Amoxicillin TAB] 875 mg PO BID #20 tablet 07/13/16 Unknown Rx Neomy/Polymyx B/Hc (Otic) Soln 4 drops OTIC TID 5 Days bottle 07/13/16 Unknown Rx [Cortisporin (Otic) Soln] Prednisone [predniSONE (Mary) ER 50 mg PO QDAY #5 tablet. 07/13/16 Unknown Rx TAB] traMADol [Ultram 50 MG tab] 50 mg PO Q4HR PRN #12 tablet 08/27/16 Unknown Rx Azithromycin [Zithromax Z-BENJI] 250 mg PO DAILY #6 tab 04/15/18 Unknown Rx Acetaminophen [Tylenol Arthritis] 650 mg PO Q6HR PRN #30 tablet.er 06/07/18 Unknown Rx Chlorhexidine Mouthwash [Peridex] 15 ml MM BID #1 bottle 06/07/18 Unknown Rx Fluticasone [Flonase] 1 spray NS QDAY #1 bottle 06/07/18 Unknown Rx Ibuprofen [Motrin] 600 mg PO Q8H PRN #30 tablet 06/07/18 Unknown Rx guaiFENesin [Mucinex] 600 mg PO BID #30 tab.er.12h 06/07/18 Unknown Rx Cyclobenzaprine [Flexeril 10 MG 10 mg PO QHS #15 tablet 08/28/18 Unknown Rx TAB] Diclofenac Sodium 50 mg PO BID #30 tablet. 08/28/18 Unknown Rx Triamcinolone 0.1% [Kenalog 0.1% 1 applic TP TID #1 tube 08/28/18 Unknown Rx CREAM] ALBUTEROL Inhaler (OR & NICU) 2 puff IH QID PRN #1 inhalation 09/21/18 Unknown Rx [ProAir HFA Inhaler] Azithromycin [Zithromax Z-BENJI] 250 mg PO DAILY #6 tablet 09/21/18 Unknown Rx guaiFENesin/CODEINE [Robitussin AC] 10 ml PO Q6HR PRN #100 oral.liqd 09/21/18 Unknown Rx predniSONE [Deltasone] 20 mg PO QDAY #5 tab 09/21/18 Unknown Rx Cyclobenzaprine [Flexeril] 10 mg PO TID PRN #20 tablet 11/16/18 Unknown Rx Hydrocortisone 1% [Hydrocortisone 1 applicatio TP TID 7 Days #1 tube 11/16/18 Unknown Rx 1% CREAM] Ibuprofen [Motrin 800 MG tab] 800 mg PO Q8HR PRN #15 tablet 11/16/18 Unknown Rx Allergies Allergy/AdvReac Type Severity Reaction Status Date / Time Penicillins Allergy Angioedema Verified 09/21/18 09:53 ED Review of Systems ROS: Stated complaint: BACK PAIN Other details as noted in HPI Comment: All other systems reviewed and negative Constitutional: denies: fever, malaise Respiratory: denies: cough Cardiovascular: denies: chest pain ED Past Medical Hx - Past Medical History Previous Medical History?: No - Surgical History Past Surgical History?: Yes Additional Surgical History: Left Ear - Social History Smoking Status: Never Smoker Substance Use Type: None - Medications Home Medications: Home Medications Medication Instructions Recorded Confirmed Last Taken Type Amoxicillin [Amoxicillin TAB] 875 mg PO BID #20 tablet 07/13/16 Unknown Rx Neomy/Polymyx B/Hc (Otic) Soln 4 drops OTIC TID 5 Days bottle 07/13/16 Unknown Rx [Cortisporin (Otic) Soln] Prednisone [predniSONE (Mary) ER 50 mg PO QDAY #5 tablet. 07/13/16 Unknown Rx TAB] traMADol [Ultram 50 MG tab] 50 mg PO Q4HR PRN #12 tablet 08/27/16 Unknown Rx Azithromycin [Zithromax Z-BENJI] 250 mg PO DAILY #6 tab 04/15/18 Unknown Rx Acetaminophen [Tylenol Arthritis] 650 mg PO Q6HR PRN #30 tablet.er 06/07/18 Unknown Rx Chlorhexidine Mouthwash [Peridex] 15 ml MM BID #1 bottle 06/07/18 Unknown Rx Fluticasone [Flonase] 1 spray NS QDAY #1 bottle 06/07/18 Unknown Rx Ibuprofen [Motrin] 600 mg PO Q8H PRN #30 tablet 06/07/18 Unknown Rx guaiFENesin [Mucinex] 600 mg PO BID #30 tab.er.12h 06/07/18 Unknown Rx Cyclobenzaprine [Flexeril 10 MG 10 mg PO QHS #15 tablet 08/28/18 Unknown Rx TAB] Diclofenac Sodium 50 mg PO BID #30 tablet.dr 08/28/18 Unknown Rx Triamcinolone 0.1% [Kenalog 0.1% 1 applic TP TID #1 tube 08/28/18 Unknown Rx CREAM] ALBUTEROL Inhaler (OR & NICU) 2 puff IH QID PRN #1 inhalation 09/21/18 Unknown Rx [ProAir HFA Inhaler] Azithromycin [Zithromax Z-BENJI] 250 mg PO DAILY #6 tablet 09/21/18 Unknown Rx guaiFENesin/CODEINE [Robitussin AC] 10 ml PO Q6HR PRN #100 oral.liqd 09/21/18 Unknown Rx predniSONE [Deltasone] 20 mg PO QDAY #5 tab 09/21/18 Unknown Rx Cyclobenzaprine [Flexeril] 10 mg PO TID PRN #20 tablet 11/16/18 Unknown Rx Hydrocortisone 1% [Hydrocortisone 1 applicatio TP TID 7 Days #1 tube 11/16/18 Unknown Rx 1% CREAM] Ibuprofen [Motrin 800 MG tab] 800 mg PO Q8HR PRN #15 tablet 11/16/18 Unknown Rx ED Physical Exam - General Limitations: No Limitations General appearance: alert, in no apparent distress - Head Head exam: Present: atraumatic, normocephalic - Eye Eye exam: Present: normal appearance - ENT ENT exam: Present: mucous membranes moist - Neck Neck exam: Present: normal inspection, full ROM - Respiratory Respiratory exam: Present: normal lung sounds bilaterally. Absent: respiratory distress, wheezes, rales, rhonchi - Cardiovascular Cardiovascular Exam: Present: regular rate, normal rhythm, normal heart sounds. Absent: systolic murmur, diastolic murmur, rubs, gallop - GI/Abdominal GI/Abdominal exam: Present: soft, normal bowel sounds. Absent: distended, tenderness, guarding, rebound - Rectal Rectal exam: Present: deferred - Extremities Exam Extremities exam: Present: normal inspection - Back Exam Back exam: Present: normal inspection - Neurological Exam Neurological exam: Present: alert, oriented X3 - Psychiatric Psychiatric exam: Present: normal affect, normal mood - Skin Skin exam: Present: warm, dry, other (bilateral cheeks: red sandpaper like mike h). Absent: rash ED Course Vital Signs 11/16/18 14:32 Temperature 97.4 F L Pulse Rate 86 Respiratory 20 Rate Blood Pressure 165/102 O2 Sat by Pulse 96 Oximetry ED Medical Decision Making - Medical Decision Making Santos is a 38-year-old male who presents with moderately severe lower back pain. No red flags such as trauma, weight loss, fever, neurological symptoms. Diagnosis lumbar strain prescribed ibuprofen and Flexeril 2. Eczematous rash on face hydrocortisone cream prescribed Critical care attestation.: If time is entered above; I have spent that time in minutes in the direct care of this critically ill patient, excluding procedure time. ED Disposition Clinical Impression: Dermatitis of face, Lumbar strain Disposition: - TO HOME OR SELFCARE Is pt being admited?: No Does the pt Need Aspirin: No Condition: Stable Instructions: Low Back Strain (ED), Eczema (ED) Prescriptions: Cyclobenzaprine [Flexeril] 10 mg PO TID PRN #20 tablet PRN Reason: Muscle Spasm Hydrocortisone 1% [Hydrocortisone 1% CREAM] 1 applicatio TP TID 7 Days #1 tube Ibuprofen [Motrin 800 MG tab] 800 mg PO Q8HR PRN #15 tablet PRN Reason: Pain , Severe (7-10) Referrals: ENEDINA KENDALL DO [Staff Physician] - 3-5 Days Forms: Work/School Release Form(ED)
[2018-11-16] MEDS ORDERED: FLEXERIL PO ONE (15:06)
[2018-11-16] MEDS ORDERED: IBUPROFEN PO ONE (15:06)
== END 2018-11-16 15:15 | disposition home or self-care (01) ==
LOC: ED 14:19
DX: S39.012A Strain of muscle, fascia and tendon of lower back, initial encounter (principal); L30.9 Dermatitis, unspecified; X58.XXXA Exposure to other specified factors, initial encounter; Y93.89 Activity, other specified; Y92.89 Other specified places as the place of occurrence of the external cause; Y99.8 Other external cause status
CPT/HCPCS: 99282

== ENCOUNTER 2019-01-22 11:27 | Emergency (ER) | payer MEDICARE ==
--- NOTE | 2019-01-22 11:45 | Emergency Department Report ---
Blank Doc - Documentation Documentation: 38-year-old male that presents with dizziness. Denies any other symptoms. This initial assessment/diagnostic orders/clinical plan/treatment(s) is/are subject to change based on patient's health status, clinical progression and re- assessment by fellow clinical providers in the ED. Further treatment and workup at subsequent clinical providers discretion. Patient/guardians urged not to elope from the ED as their condition may be serious if not clinically assessed and managed. Initial orders include: 1- Patient sent to [facility] for further evaluation and treatment 2- labs 3- UA
[2019-01-22 11:47] VITALS: BP 135/90
[2019-01-22 12:19] LABS: Basophils % (Auto) 0.8 % (0.0-1.8); Eosinophils # (Auto) 0.1 K/mm3 (0.0-0.4); Eosinophils % (Auto) 2.4 % (0.0-4.3); Hematocrit 40.5 % (35.5-45.6); Hemoglobin 13.5 gm/dl (11.8-15.2); Lymphocytes # (Auto) 1.4 K/mm3 (1.2-5.4); Lymphocytes % (Auto) 44.5 % (13.4-35.0); Mean Corpuscular HGB Conc 33 % (32-34); Mean Corpuscular Volume 84 fl (84-94); Monocytes # (Auto) 0.3 K/mm3 (0.0-0.8); Monocytes % (Auto) 9.5 % (0.0-7.3); Platelet Count 215 K/mm3 (140-440); Red Blood Count 4.86 M/mm3 (3.65-5.03); Red Cell Distribution Width 13.4 % (13.2-15.2)
[2019-01-22 12:40] LABS: BUN/Creatinine Ratio 16; Blood Urea Nitrogen 13 mg/dL (9-20); Hemolysis Index 6
--- NOTE | 2019-01-22 12:50 | Emergency Department Report ---
ED Dizziness HPI - General Chief Complaint: Dizziness Stated Complaint: DIZZINESS Time Seen by Provider: 01/22/19 11:45 Source: patient Mode of arrival: Ambulatory Limitations: No Limitations - History of Present Illness Initial Comments: Mr. Carrera is a healthy 38-year-old male without significant Past medical history who presents with lightheadedness for the past 4 days. 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 He denies headache. No chest pain. He requests hydrocortisone cream prescription for facial eczema. Symptoms improved with rest over the weekend. MD Complaint: dizziness, lightheadedness -: Gradual, days(s) (4) Timing: gradual onset History of Same: Yes History of Trauma: No Severity: mild Improves With: rest Worsens With: nothing Associated Symptoms: denies other symptoms - Related Data Previous Rx's Medication Instructions Recorded Last Taken Type Amoxicillin [Amoxicillin TAB] 875 mg PO BID #20 tablet 07/13/16 Unknown Rx Neomy/Polymyx B/Hc (Otic) Soln 4 drops OTIC TID 5 Days bottle 07/13/16 Unknown Rx [Cortisporin (Otic) Soln] Prednisone [predniSONE (Mary) ER 50 mg PO QDAY #5 tablet. 07/13/16 Unknown Rx TAB] traMADol [Ultram 50 MG tab] 50 mg PO Q4HR PRN #12 tablet 08/27/16 Unknown Rx Azithromycin [Zithromax Z-BENJI] 250 mg PO DAILY #6 tab 04/15/18 Unknown Rx Acetaminophen [Tylenol Arthritis] 650 mg PO Q6HR PRN #30 tablet.er 06/07/18 Unknown Rx Chlorhexidine Mouthwash [Peridex] 15 ml MM BID #1 bottle 06/07/18 Unknown Rx Fluticasone [Flonase] 1 spray NS QDAY #1 bottle 06/07/18 Unknown Rx Ibuprofen [Motrin] 600 mg PO Q8H PRN #30 tablet 06/07/18 Unknown Rx guaiFENesin [Mucinex] 600 mg PO BID #30 tab.er.12h 06/07/18 Unknown Rx Cyclobenzaprine [Flexeril 10 MG 10 mg PO QHS #15 tablet 08/28/18 Unknown Rx TAB] Diclofenac Sodium 50 mg PO BID #30 tablet. 08/28/18 Unknown Rx Triamcinolone 0.1% [Kenalog 0.1% 1 applic TP TID #1 tube 08/28/18 Unknown Rx CREAM] ALBUTEROL Inhaler (OR & NICU) 2 puff IH QID PRN #1 inhalation 09/21/18 Unknown Rx [ProAir HFA Inhaler] Azithromycin [Zithromax Z-BENJI] 250 mg PO DAILY #6 tablet 09/21/18 Unknown Rx guaiFENesin/CODEINE [Robitussin AC] 10 ml PO Q6HR PRN #100 oral.liqd 09/21/18 Unknown Rx predniSONE [Deltasone] 20 mg PO QDAY #5 tab 09/21/18 Unknown Rx Cyclobenzaprine [Flexeril] 10 mg PO TID PRN #20 tablet 11/16/18 Unknown Rx Hydrocortisone 1% [Hydrocortisone 1 applicatio TP TID 7 Days #1 tube 11/16/18 Unknown Rx 1% CREAM] Ibuprofen [Motrin 800 MG tab] 800 mg PO Q8HR PRN #15 tablet 11/16/18 Unknown Rx Hydrocortisone 1% [Hydrocortisone 1 applicatio TP TID #1 tube 01/22/19 Unknown Rx 1% CREAM] Allergies Allergy/AdvReac Type Severity Reaction Status Date / Time Penicillins Allergy Angioedema Verified 09/21/18 09:53 ED Review of Systems ROS: Stated complaint: DIZZINESS Other details as noted in HPI Comment: All other systems reviewed and negative Constitutional: denies: fever, malaise Cardiovascular: denies: chest pain Gastrointestinal: denies: abdominal pain, nausea, vomiting ED Past Medical Hx - Past Medical History Previous Medical History?: No - Surgical History Past Surgical History?: Yes Additional Surgical History: Left Ear - Social History Smoking Status: Never Smoker Substance Use Type: None - Medications Home Medications: Home Medications Medication Instructions Recorded Confirmed Last Taken Type Amoxicillin [Amoxicillin TAB] 875 mg PO BID #20 tablet 07/13/16 Unknown Rx Neomy/Polymyx B/Hc (Otic) Soln 4 drops OTIC TID 5 Days bottle 07/13/16 Unknown Rx [Cortisporin (Otic) Soln] Prednisone [predniSONE (Mary) ER 50 mg PO QDAY #5 tablet. 07/13/16 Unknown Rx TAB] traMADol [Ultram 50 MG tab] 50 mg PO Q4HR PRN #12 tablet 08/27/16 Unknown Rx Azithromycin [Zithromax Z-BENJI] 250 mg PO DAILY #6 tab 04/15/18 Unknown Rx Acetaminophen [Tylenol Arthritis] 650 mg PO Q6HR PRN #30 tablet.er 06/07/18 Unknown Rx Chlorhexidine Mouthwash [Peridex] 15 ml MM BID #1 bottle 06/07/18 Unknown Rx Fluticasone [Flonase] 1 spray NS QDAY #1 bottle 06/07/18 Unknown Rx Ibuprofen [Motrin] 600 mg PO Q8H PRN #30 tablet 06/07/18 Unknown Rx guaiFENesin [Mucinex] 600 mg PO BID #30 tab.er.12h 06/07/18 Unknown Rx Cyclobenzaprine [Flexeril 10 MG 10 mg PO QHS #15 tablet 08/28/18 Unknown Rx TAB] Diclofenac Sodium 50 mg PO BID #30 tablet.dr 08/28/18 Unknown Rx Triamcinolone 0.1% [Kenalog 0.1% 1 applic TP TID #1 tube 08/28/18 Unknown Rx CREAM] ALBUTEROL Inhaler (OR & NICU) 2 puff IH QID PRN #1 inhalation 09/21/18 Unknown Rx [ProAir HFA Inhaler] Azithromycin [Zithromax Z-BENJI] 250 mg PO DAILY #6 tablet 09/21/18 Unknown Rx guaiFENesin/CODEINE [Robitussin AC] 10 ml PO Q6HR PRN #100 oral.liqd 09/21/18 U nknown Rx predniSONE [Deltasone] 20 mg PO QDAY #5 tab 09/21/18 Unknown Rx Cyclobenzaprine [Flexeril] 10 mg PO TID PRN #20 tablet 11/16/18 Unknown Rx Hydrocortisone 1% [Hydrocortisone 1 applicatio TP TID 7 Days #1 tube 11/16/18 Unknown Rx 1% CREAM] Ibuprofen [Motrin 800 MG tab] 800 mg PO Q8HR PRN #15 tablet 11/16/18 Unknown Rx Hydrocortisone 1% [Hydrocortisone 1 applicatio TP TID #1 tube 01/22/19 Unknown Rx 1% CREAM] ED Physical Exam - General Limitations: No Limitations General appearance: alert, in no apparent distress, other (walking around briskly while talking on the phone) - Head Head exam: Present: atraumatic, normocephalic - Eye Eye exam: Present: normal appearance - ENT ENT exam: Present: mucous membranes moist - Neck Neck exam: Present: normal inspection, full ROM - Respiratory Respiratory exam: Present: normal lung sounds bilaterally. Absent: respiratory distress, wheezes, rales, rhonchi - Cardiovascular Cardiovascular Exam: Present: regular rate, normal rhythm, normal heart sounds. Absent: systolic murmur, diastolic murmur, rubs, gallop - GI/Abdominal GI/Abdominal exam: Present: soft, normal bowel sounds. Absent: distended, tenderness, guarding, rebound - Rectal Rectal exam: Present: deferred - Extremities Exam Extremities exam: Present: normal inspection - Back Exam Back exam: Present: normal inspection - Neurological Exam Neurological exam: Present: alert, oriented X3, normal gait - Psychiatric Psychiatric exam: Present: normal affect, normal mood - Skin Skin exam: Present: warm, dry, intact, normal color. Absent: rash ED Course Vital Signs 01/22/19 11:36 Temperature 97.8 F Pulse Rate 59 L Respiratory 16 Rate Blood Pressure 135/90 O2 Sat by Pulse 96 Oximetry ED Medical Decision Making - Lab Data Result diagrams: 01/22/19 12:00 01/22/19 12:00 Laboratory Results - last 24 hr 01/22/19 01/22/19 12:00 12:00 WBC 3.2 L RBC 4.86 Hgb 13.5 Hct 40.5 MCV 84 MCH 28 MCHC 33 RDW 13.4 Plt Count 215 Lymph % (Auto) 44.5 H [place] % (Auto) 9.5 H Eos % (Auto) 2.4 Baso % (Auto) 0.8 Lymph # 1.4 [place] # 0.3 Eos # 0.1 Baso # 0.0 Seg Neutrophils % 42.8 Seg Neutrophils # 1.4 L Sodium 144 Potassium 4.0 Chloride 109.8 H Carbon Dioxide 24 Anion Gap 14 BUN 13 Creatinine 0.8 Estimated GFR > 60 BUN/Creatinine Ratio 16 Glucose 107 H Calcium 9.0 - Medical Decision Making Mr. Mccormick presents with lightheadedness diagnosis dehydration, fatigue; no indication of anemia or metabolic abnormality. 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 ED Disposition Clinical Impression: Lightheadedness, Dehydration, Fatigue, Medication refill Disposition: TO HOME OR SELFCARE Is pt being admited?: No Does the pt Need Aspirin: No Condition: Stable Instructions: Dehydration (ED), Fatigue (ED) Prescriptions: Hydrocortisone 1% [Hydrocortisone 1% CREAM] 1 applicatio TP TID #1 tube Referrals: [facility] [Outside] - 3-5 Days
[2019-01-22 13:16] LABS: Bacteria,Urine 1+ /HPF (Negative); Bilirubin,Urine NEG (Negative); Blood,Urine NEG (Negative); Color,Urine Yellow (Yellow); Mucus,Urine 3+ /HPF; Protein,Urine <15 mg/dL mg/dL (Negative); Urobilinogen,Urine < 2.0 mg/dL (<2.0)
== END 2019-01-22 13:59 | disposition home or self-care (01) ==
LOC: ED 11:27
DX: E86.0 Dehydration (principal); R53.83 Other fatigue; R42 Dizziness and giddiness; Z76.0 Encounter for issue of repeat prescription; Z79.899 Other long term (current) drug therapy
CPT/HCPCS: 36415; 80048; 81001; 85025; 99283

== ENCOUNTER 2019-04-05 12:19 | Emergency (ER) | payer MEDICARE ==
--- NOTE | 2019-04-05 12:31 | Emergency Department Report ---
ED Back Pain/Injury HPI - General Chief Complaint: Back Pain/Injury Stated Complaint: LOWER BACK PAIN Time Seen by Provider: 04/05/19 12:24 Source: patient Limitations: No Limitations - History of Present Illness Initial Comments: This is a 38-year-old male nontoxic, well nourished in appearance, no acute signs of distress presents to the ED with c/o of acute on chronic lower back pain. Patient stated that the past 2 days she was moving and developed this pain. Patient denies any trauma. Denies any bladder or bowel instability. Patient denies any urinary symptoms. Denies any fever, chills, nausea, vomiting, headache, stiff neck, chest pain or shortness of breath. Patient denies any numbness or tingling. Allergies includes PCN. MD Complaint: back pain -: days(s) (2) Similar Symptoms Previously: Yes Radiation: none Severity: mild Severity scale (0 -10): 3 Quality: aching Consistency: intermittent Improves With: immobilization, sitting upright Worsens With: movement, walking Context: while lifting, turning/twisting Associated Symptoms: denies other symptoms. denies: confusion, weakness, chest pain, numbness, difficulty walking, cough, difficulty urinating, diaphoresis, incontinence, fever/chills, constipation, headaches, abdominal pain, loss of appetite, malaise, nausea/vomiting, rash, seizure, shortness of breath, syncope - Related Data Previous Rx's Medication Instructions Recorded Last Taken Type Amoxicillin [Amoxicillin TAB] 875 mg PO BID #20 tablet 07/13/16 Unknown Rx Neomy/Polymyx B/Hc (Otic) Soln 4 drops OTIC TID 5 Days bottle 07/13/16 Unknown Rx [Cortisporin (Otic) Soln] Prednisone [predniSONE (Mary) ER 50 mg PO QDAY #5 tablet.dr 07/13/16 Unknown Rx TAB] traMADoL [Ultram 50 MG tab] 50 mg PO Q4HR PRN #12 tablet 08/27/16 Unknown Rx Azithromycin [Zithromax Z-BENJI] 250 mg PO DAILY #6 tab 04/15/18 Unknown Rx Acetaminophen [Tylenol Arthritis] 650 mg PO Q6HR PRN #30 tablet.er 06/07/18 Unknown Rx Chlorhexidine Mouthwash [Peridex] 15 ml MM BID #1 bottle 06/07/18 Unknown Rx Fluticasone [Flonase] 1 spray NS QDAY #1 bottle 06/07/18 Unknown Rx Ibuprofen [Motrin] 600 mg PO Q8H PRN #30 tablet 06/07/18 Unknown Rx guaiFENesin [Mucinex] 600 mg PO BID #30 tab.er.12h 06/07/18 Unknown Rx Cyclobenzaprine [Flexeril 10 MG 10 mg PO QHS #15 tablet 08/28/18 Unknown Rx TAB] Diclofenac Sodium 50 mg PO BID #30 tablet.dr 08/28/18 Unknown Rx Triamcinolone 0.1% [Kenalog 0.1% 1 applic TP TID #1 tube 08/28/18 Unknown Rx CREAM] ALBUTEROL Inhaler (OR & NICU) 2 puff IH QID PRN #1 inhalation 09/21/18 Unknown Rx [ProAir HFA Inhaler] Azithromycin [Zithromax Z-BENJI] 250 mg PO DAILY #6 tablet 09/21/18 Unknown Rx guaiFENesin/CODEINE [Robitussin AC] 10 ml PO Q6HR PRN #100 oral.liqd 09/21/18 Unknown Rx predniSONE [Deltasone] 20 mg PO QDAY #5 tab 09/21/18 Unknown Rx Cyclobenzaprine [Flexeril] 10 mg PO TID PRN #20 tablet 11/16/18 Unknown Rx Hydrocortisone 1% [Hydrocortisone 1 applicatio TP TID 7 Days #1 tube 11/16/18 Unknown Rx 1% CREAM] Ibuprofen [Motrin 800 MG tab] 800 mg PO Q8HR PRN #15 tablet 11/16/18 Unknown Rx Hydrocortisone 1% [Hydrocortisone 1 applicatio TP TID #1 tube 01/22/19 Unknown Rx 1% CREAM] Cyclobenzaprine [Flexeril] 10 mg PO QHS PRN #10 tablet 04/05/19 Unknown Rx Naproxen 500 mg PO Q12H PRN #20 tablet 04/05/19 Unknown Rx Allergies Allergy/AdvReac Type Severity Reaction Status Date / Time Penicillins Allergy Angioedema Verified 09/21/18 09:53 ED Review of Systems ROS: Stated complaint: LOWER BACK PAIN Other details as noted in HPI Constitutional: denies: chills, fever Eyes: denies: eye pain, eye discharge, vision change ENT: denies: ear pain, throat pain Respiratory: denies: cough, shortness of breath, wheezing Cardiovascular: denies: chest pain, palpitations Endocrine: no symptoms reported Gastrointestinal: denies: abdominal pain, nausea, diarrhea Genitourinary: denies: urgency, dysuria Musculoskeletal: back pain. denies: joint swelling, arthralgia Skin: denies: rash, lesions Neurological: denies: headache, weakness, paresthesias Psychiatric: denies: anxiety, depression Hematological/Lymphatic: denies: easy bleeding, easy bruising ED Past Medical Hx - Past Medical History Previous Medical History?: No - Surgical History Past Surgical History?: No Additional Surgical History: Left Ear - Social History Smoking Status: Never Smoker Substance Use Type: None - Medications Home Medications: Home Medications Medication Instructions Recorded Confirmed Last Taken Type Amoxicillin [Amoxicillin TAB] 875 mg PO BID #20 tablet 07/13/16 Unknown Rx Neomy/Polymyx B/Hc (Otic) Soln 4 drops OTIC TID 5 Days bottle 07/13/16 Unknown Rx [Cortisporin (Otic) Soln] Prednisone [predniSONE (Mary) ER 50 mg PO QDAY #5 tablet. 07/13/16 Unknown Rx TAB] traMADoL [Ultram 50 MG tab] 50 mg PO Q4HR PRN #12 tablet 08/27/16 Unknown Rx Azithromycin [Zithromax Z-BENJI] 250 mg PO DAILY #6 tab 04/15/18 Unknown Rx Acetaminophen [Tylenol Arthritis] 650 mg PO Q6HR PRN #30 tablet.er 06/07/18 Unknown Rx Chlorhexidine Mouthwash [Peridex] 15 ml MM BID #1 bottle 06/07/18 Unknown Rx Fluticasone [Flonase] 1 spray NS QDAY #1 bottle 06/07/18 Unknown Rx Ibuprofen [Motrin] 600 mg PO Q8H PRN #30 tablet 06/07/18 Unknown Rx guaiFENesin [Mucinex] 600 mg PO BID #30 tab.er.12h 06/07/18 Unknown Rx Cyclobenzaprine [Flexeril 10 MG 10 mg PO QHS #15 tablet 08/28/18 Unknown Rx TAB] Diclofenac Sodium 50 mg PO BID #30 tablet. 08/28/18 Unknown Rx Triamcinolone 0.1% [Kenalog 0.1% 1 applic TP TID #1 tube 08/28/18 Unknown Rx CREAM] ALBUTEROL Inhaler (OR & NICU) 2 puff IH QID PRN #1 inhalation 09/21/18 Unknown Rx [ProAir HFA Inhaler] Azithromycin [Zithromax Z-BENJI] 250 mg PO DAILY #6 tablet 09/21/18 Unknown Rx guaiFENesin/CODEINE [Robitussin AC] 10 ml PO Q6HR PRN #100 oral.liqd 09/21/18 Unknown Rx predniSONE [Deltasone] 20 mg PO QDAY #5 tab 09/21/18 Unknown Rx Cyclobenzaprine [Flexeril] 10 mg PO TID PRN #20 tablet 11/16/18 Unknown Rx Hydrocortisone 1% [Hydrocortisone 1 applicatio TP TID 7 Days #1 tube 11/16/18 Unknown Rx 1% CREAM] Ibuprofen [Motrin 800 MG tab] 800 mg PO Q8HR PRN #15 tablet 11/16/18 Unknown Rx Hydrocortisone 1% [Hydrocortisone 1 applicatio TP TID #1 tube 01/22/19 Unknown Rx 1% CREAM] Cyclobenzaprine [Flexeril] 10 mg PO QHS PRN #10 tablet 04/05/19 Unknown Rx Naproxen 500 mg PO Q12H PRN #20 tablet 04/05/19 Unknown Rx ED Physical Exam - General Limitations: No Limitations General appearance: alert, in no apparent distress - Head Head exam: Present: atraumatic, normocephalic - Neck Neck exam: Present: normal inspection, full ROM. Absent: tenderness, meningismus, lymphadenopathy - Extremities Exam Extremities exam: Present: normal inspection, full ROM - Back Exam Back exam: Present: normal inspection, full ROM, paraspinal tenderness (lumbar paraspinal). Absent: tenderness, CVA tenderness (R), CVA tenderness (L), muscle spasm, vertebral tenderness, rash noted - Expanded Back Exam Expanded Back exam: Absent: saddle anesthesia Back exam: Negative Straight Leg Raising: Left, Right - Neurological Exam Neurological exam: Present: alert, oriented X3, normal gait - Psychiatric Psychiatric exam: Present: normal affect, normal mood - Skin Skin exam: Present: warm, dry, intact, normal color. Absent: rash ED Course Vital Signs 04/05/19 12:25 Temperature 98.6 F Pulse Rate 93 H Respiratory 16 Rate Blood Pressure 163/100 O2 Sat by Pulse 97 Oximetry - Reevaluation(s) Reevaluation #1: 04/05/19 12:29 Patient is speaking in full sentences with no signs of distress noted. ED Medical Decision Making - Medical Decision Making This is a 38-year-old male that presents with low back strain. Patient is stable was examined by me. There is no spinal tenderness. There is no cauda equina syndrome during examination. No bladder or bowel instability. Patient is discharged with muscle relaxant and NSAID. Patient was instructed not to opera te any machinery while taking muscle relaxant as they cause her drowsiness. Patient was referred to Follow-up with a primary care doctor in 3-5 days or if symptoms worsen and continue return to emergency room as soon as possible. At time of discharge, the patient does not seem toxic or ill in appearance. No acute signs of distress noted. Patient agrees to discharge treatment plan of care. No further questions noted by the patient. Patient was medically screened-stay. Critical care attestation.: If time is entered above; I have spent that time in minutes in the direct care of this critically ill patient, excluding procedure time. ED Disposition Clinical Impression: Low back strain Qualifiers: Encounter type: initial encounter Qualified Code(s): S39.012A - Strain of muscle, fascia and tendon of lower back, initial encounter Disposition: DC-01 TO HOME OR SELFCARE Is pt being admited?: No Does the pt Need Aspirin: No Condition: Stable Instructions: Cyclobenzaprine (By mouth), Low Back Strain (ED) Additional Instructions: Follow-up with a primary care doctor in 3-5 days or if symptoms worsen and continue return to emergency room as soon as possible. Prescriptions: Cyclobenzaprine [Flexeril] 10 mg PO QHS PRN #10 tablet PRN Reason: Muscle Spasm Naproxen 500 mg PO Q12H PRN #20 tablet PRN Reason: Pain, Moderate (4-6) Referrals: MARIBELL BONNER MD [Primary Care Provider] - 3-5 Days PRIMARY MD FIOR [Referring] - 3-5 Days KRIS ARCINIEGA MD [Staff Physician] - 3-5 Days [facility] [Outside] - 3-5 Days
[2019-04-05 12:33] VITALS: BP 163/100
== END 2019-04-05 12:58 | disposition home or self-care (01) ==
LOC: ED 12:19
DX: S39.012A Strain of muscle, fascia and tendon of lower back, initial encounter (principal); Z79.899 Other long term (current) drug therapy; Z88.0 Allergy status to penicillin; X58.XXXA Exposure to other specified factors, initial encounter; Y93.89 Activity, other specified; Y92.89 Other specified places as the place of occurrence of the external cause; Y99.8 Other external cause status
CPT/HCPCS: 99282

== ENCOUNTER 2019-07-16 10:27 | Emergency (ER) | payer OTHER, MEDICARE ==
[2019-07-16 11:16] VITALS: BP 142/94
[2019-07-16] MEDS ORDERED: dexAMETHasone 4 MG/ML VIAL IM ONE (12:20)
[2019-07-16] MEDS ORDERED: diphenhydrAMINE 25 MG/10 ML ORAL LIQUID PO ONE (12:20)
--- NOTE | 2019-07-16 12:26 | Emergency Department Report ---
Chief Complaint: Dental/Oral Stated Complaint: LIP SWOLLEN Time Seen by Provider: 07/16/19 12:21 - HPI History of Present Illness: 38yo M states that he has painless diffuse upper lip swelling x 2 days. He states that the cause is most likely due to eating pineapple, watermelon or recently drinking milk. - ROS Review of Systems: All system reviewed and WNL except ENT; see HPI for mouth abnormalities - Exam Vital Signs: Vital Signs 07/16/19 11:15 Temperature 97.7 F Pulse Rate 70 Respiratory 18 Rate Blood Pressure 142/94 [Right] O2 Sat by Pulse 98 Oximetry Reviewed and WNL . Physical Exam: Head- WNL EENT- diffuse erythematous swelling of the R upper lip NEck -WNL Lungs-WNL Heart-WNL Abdomen-WNL MS-WNL Psych-WNL Neuro-WNL MSE screening note: Focused history and physical exam performed. Due to findings the following was ordered: Pt was MSE screened out due to the following. Pt was informed that he has mild allergic reaction. He was given a Decadron injection and Benadryl po. He was instructed to f/u with his PCP in 2-3 days, see ER as needed and avoid potential foods that caused his current reaction. Pt called a ride for transport home. ED Disposition for MSE Condition: Stable Referrals: ALEXANDRE BHAKTA MD [Primary Care Provider] - 3-5 Days
== END 2019-07-16 13:45 | disposition left against medical advice (07) ==
LOC: ED 10:27
DX: R22.0 Localized swelling, mass and lump, head (principal); Z53.21 Procedure and treatment not carried out due to patient leaving prior to being seen by health care provider

== ENCOUNTER 2020-03-03 11:36 | Emergency (ER) | payer OTHER, MEDICARE ==
--- NOTE | 2020-03-03 12:32 | Emergency Department Report ---
Blank Doc - Documentation Documentation: 39-year-old male with no significant past medical history presents emergency d epartment complaining of a 2-day history of rectal bleeding seen blood in the toilet after bowel movement she reports no constipation or any significant diarrhea. Reports no rectal trauma or rectal penetration precipitating the bleeding. Bowel movements are painful This initial assessment/diagnostic orders/clinical plan/treatment(s) is/are subject to change based on patients health status, clinical progression and re- assessment by fellow clinical providers in the ED. Further treatment and workup at subsequent clinical providers discretion. Patient/guardian urged not to elope from the ED as their condition may be serious if not clinically assessed and managed. Initial orders include: RECTAL EVALUATION
[2020-03-03 12:45] VITALS: BP 140/103
--- NOTE | 2020-03-03 14:31 | Emergency Department Report ---
ED General Adult HPI - General Chief complaint: GI Bleed Stated complaint: CANT URINATE Time Seen by Provider: 03/03/20 13:46 Source: patient Mode of arrival: Ambulatory Limitations: No Limitations - History of Present Illness Initial comments: This very pleasant 39-year-old male who presents the emergency department with chief complaint of blood in his stool this morning. Patient reports when he had a bowel movement he noticed some blood in the bowl. He noticed some blood when wiping. He describes as bright red blood. He also noticed some pain and swelling around the rectum that has improved. He reports severity of his pain is an 8 of 10. He denies any known past medical history, current medication use or known allergies to medications other than penicillin which cause angioedema. He denies any associated fever, chills, night sweats, headache, dizziness, blurry vision, nausea, vomiting, diarrhea, chest pain, shortness of breath. - Related Data Previous Rx's Medication Instructions Recorded Last Taken Type Amoxicillin [Amoxicillin TAB] 875 mg PO BID #20 tablet 07/13/16 Unknown Rx Neomy/Polymyx B/Hc (Otic) Soln 4 drops OTIC TID 5 Days bottle 07/13/16 Unknown Rx [Cortisporin (Otic) Soln] Prednisone [predniSONE (Mary) ER 50 mg PO QDAY #5 tablet.dr 07/13/16 Unknown Rx TAB] traMADoL [Ultram 50 MG tab] 50 mg PO Q4HR PRN #12 tablet 08/27/16 Unknown Rx Azithromycin [Zithromax Z-BENJI] 250 mg PO DAILY #6 tab 04/15/18 Unknown Rx Acetaminophen [Tylenol Arthritis] 650 mg PO Q6HR PRN #30 tablet.er 06/07/18 Unknown Rx Chlorhexidine Mouthwash [Peridex] 15 ml MM BID #1 bottle 06/07/18 Unknown Rx Fluticasone [Flonase] 1 spray NS QDAY #1 bottle 06/07/18 Unknown Rx Ibuprofen [Motrin] 600 mg PO Q8H PRN #30 tablet 06/07/18 Unknown Rx guaiFENesin [Mucinex] 600 mg PO BID #30 tab.er.12h 06/07/18 Unknown Rx Cyclobenzaprine [Flexeril 10 MG 10 mg PO QHS #15 tablet 08/28/18 Unknown Rx TAB] Diclofenac Sodium 50 mg PO BID #30 tablet. 08/28/18 Unknown Rx Triamcinolone 0.1% [Kenalog 0.1% 1 applic TP TID #1 tube 08/28/18 Unknown Rx CREAM] Albuterol Mdi (or & Nicu Only) 2 puff IH QID PRN #1 inhalation 09/21/18 Unknown Rx [ProAir HFA Inhaler] Azithromycin [Zithromax Z-BENJI] 250 mg PO DAILY #6 tablet 09/21/18 Unknown Rx guaiFENesin/CODEINE [Robitussin AC] 10 ml PO Q6HR PRN #100 oral.liqd 09/21/18 Unknown Rx predniSONE [Deltasone] 20 mg PO QDAY #5 tab 09/21/18 Unknown Rx Cyclobenzaprine [Flexeril] 10 mg PO TID PRN #20 tablet 11/16/18 Unknown Rx Hydrocortisone 1% [Hydrocortisone 1 applicatio TP TID 7 Days #1 tube 11/16/18 Unknown Rx 1% CREAM] Ibuprofen [Motrin 800 MG tab] 800 mg PO Q8HR PRN #15 tablet 11/16/18 Unknown Rx Hydrocortisone 1% [Hydrocortisone 1 applicatio TP TID #1 tube 01/22/19 Unknown Rx 1% CREAM] Cyclobenzaprine [Flexeril] 10 mg PO QHS PRN #10 tablet 04/05/19 Unknown Rx Naproxen 500 mg PO Q12H PRN #20 tablet 04/05/19 Unknown Rx Docusate Sodium [Colace] 100 mg PO BID #30 capsule 03/03/20 Unknown Rx Hydrocortisone [Anucort-HC SUPPOS] 25 mg RC BID #20 supp.rect 03/03/20 Unknown Rx Lidocaine Topical 2% 30Ml 0 ml MM Q6HR #1 tube 03/03/20 Unknown Rx [Xylocaine Topical 2% 30Ml] Allergies Allergy/AdvReac Type Severity Reaction Status Date / Time Penicillins Allergy Angioedema Verified 09/21/18 09:53 ED Review of Systems ROS: Stated complaint: CANT URINATE Other details as noted in HPI Comment: All other systems reviewed and negative Constitutional: denies: chills, fever Eyes: denies: eye pain, eye discharge, vision change ENT: denies: ear pain, throat pain Respiratory: denies: cough, shortness of breath, wheezing Cardiovascular: denies: chest pain, palpitations Endocrine: no symptoms reported Gastrointestinal: as per HPI, hematochezia. denies: abdominal pain, nausea, diarrhea Genitourinary: denies: urgency, dysuria Musculoskeletal: denies: back pain, joint swelling, arthralgia Skin: denies: rash, lesions Neurological: denies: headache, weakness, paresthesias Psychiatric: denies: anxiety, depression Hematological/Lymphatic: denies: easy bleeding, easy bruising ED Past Medical Hx - Past Medical History Previous Medical History?: No - Surgical History Past Surgical History?: No Additional Surgical History: Left Ear - Social History Smoking Status: Never Smoker Substance Use Type: None - Medications Home Medications: Home Medications Medication Instructions Recorded Confirmed Last Taken Type Amoxicillin [Amoxicillin TAB] 875 mg PO BID #20 tablet 07/13/16 Unknown Rx Neomy/Polymyx B/Hc (Otic) Soln 4 drops OTIC TID 5 Days bottle 07/13/16 Unknown Rx [Cortisporin (Otic) Soln] Prednisone [predniSONE (Mary) ER 50 mg PO QDAY #5 tablet. 07/13/16 Unknown Rx TAB] traMADoL [Ultram 50 MG tab] 50 mg PO Q4HR PRN #12 tablet 08/27/16 Unknown Rx Azithromycin [Zithromax Z-BENJI] 250 mg PO DAILY #6 tab 04/15/18 Unknown Rx Acetaminophen [Tylenol Arthritis] 650 mg PO Q6HR PRN #30 tablet.er 06/07/18 Unknown Rx Chlorhexidine Mouthwash [Peridex] 15 ml MM BID #1 bottle 06/07/18 Unknown Rx Fluticasone [Flonase] 1 spray NS QDAY #1 bottle 06/07/18 Unknown Rx Ibuprofen [Motrin] 600 mg PO Q8H PRN #30 tablet 06/07/18 Unknown Rx guaiFENesin [Mucinex] 600 mg PO BID #30 tab.er.12h 06/07/18 Unknown Rx Cyclobenzaprine [Flexeril 10 MG 10 mg PO QHS #15 tablet 08/28/18 Unknown Rx TAB] Diclofenac Sodium 50 mg PO BID #30 tablet. 08/28/18 Unknown Rx Triamcinolone 0.1% [Kenalog 0.1% 1 applic TP TID #1 tube 08/28/18 Unknown Rx CREAM] Albuterol Mdi (or & Nicu Only) 2 puff IH QID PRN #1 inhalation 09/21/18 Unknown Rx [ProAir HFA Inhaler] Azithromycin [Zithromax Z-BENJI] 250 mg PO DAILY #6 tablet 09/21/18 Unknown Rx guaiFENesin/CODEINE [Robitussin AC] 10 ml PO Q6HR PRN #100 oral.liqd 09/21/18 Unknown Rx predniSONE [Deltasone] 20 mg PO QDAY #5 tab 09/21/18 Unknown Rx Cyclobenzaprine [Flexeril] 10 mg PO TID PRN #20 tablet 11/16/18 Unknown Rx Hydrocortisone 1% [Hydrocortisone 1 applicatio TP TID 7 Days #1 tube 11/16/18 Unknown Rx 1% CREAM] Ibuprofen [Motrin 800 MG tab] 800 mg PO Q8HR PRN #15 tablet 11/16/18 Unknown Rx Hydrocortisone 1% [Hydrocortisone 1 applicatio TP TID #1 tube 01/22/19 Unknown Rx 1% CREAM] Cyclobenzaprine [Flexeril] 10 mg PO QHS PRN #10 tablet 04/05/19 Unknown Rx Naproxen 500 mg PO Q12H PRN #20 tablet 04/05/19 Unknown Rx Docusate Sodium [Colace] 100 mg PO BID #30 capsule 03/03/20 Unknown Rx Hydrocortisone [Anucort-HC SUPPOS] 25 mg RC BID #20 supp.rect 03/03/20 Unknown Rx Lidocaine Topical 2% 30Ml 0 ml MM Q6HR #1 tube 03/03/20 Unknown Rx [Xylocaine Topical 2% 30Ml] ED Physical Exam - General Limitations: No Limitations General appearance: alert, in no apparent distress - Head Head exam: Present: atraumatic, normocephalic - Eye Eye exam: Present: normal appearance, PERRL, EOMI Pupils: Present: normal accommodation - ENT ENT exam: Present: normal exam, normal orophraynx, mucous membranes moist - Neck Neck exam: Present: normal inspection, full ROM. Absent: tenderness, meningismus - Respiratory Respiratory exam: Present: normal lung sounds bilaterally. Absent: respiratory distress, wheezes, rales, rhonchi, stridor - Cardiovascular Cardiovascular Exam: Present: regular rate, normal rhythm, normal heart sounds. Absent: systolic murmur, diastolic murmur, rubs, gallop - GI/Abdominal GI/Abdominal exam: Present: soft, normal bowel sounds. Absent: distended, tenderness, guarding, rebound, rigid - Rectal Rectal exam: Present: other (Rectal exam chaperoned by RUFINO Rodriguez, tenderness to the rectum. Suspect internal hemorrhoid noted. No fissures or external hemorrhoids noted. No obvious signs of perirectal or perianal abscess. No fistula or drainage.) - Extremities Exam Extremities exam: Present: normal inspection, full ROM, normal capillary refill. Absent: tenderness - Back Exam Back exam: Present: normal inspection, full ROM. Absent: tenderness, CVA tenderness (R), CVA tenderness (L) - Neurological Exam Neurological exam: Present: alert, oriented X3, normal gait - Psychiatric Psychiatric exam: Present: normal affect, normal mood - Skin Skin exam: Present: warm, dry, intact, normal color. Absent: rash ED Course Vital Signs 03/03/20 12:44 Temperature 97.8 F Pulse Rate 97 H Respiratory 18 Rate Blood Pressure 140/103 [Right] O2 Sat by Pulse 99 Oximetry - Reevaluation(s) Reevaluation #1: 03/03/20 14:29 The patient presented here with rectal pain and bleeding. I recommended labs however the patient politely declined. His vital signs were normal with a normal blood pressure 140/103 and a normal heart rate of 97. He was stable and in no acute distress. I will treat him for internal hemorrhoids which suspect is likely source of his symptoms and recommended outpatient GI follow-up. He agreed to this plan all of his questions were answered. He is instructed to return to the emerge part if he develops any change or worsening symptoms. He verbalized understanding of the diagnosis, treatment plan and follow-up instructions all of his questions were answered. ED Medical Decision Making - Medical Decision Making The patient presented here with rectal pain and bleeding. I recommended labs however the patient politely declined. His vital signs were normal with a normal blood pressure 140/103 and a normal heart rate of 97. He was stable and in no acute distress. I will treat him for internal hemorrhoids which suspect is likely source of his symptoms and recommended outpatient GI follow-up. He agreed to this plan all of his questions were answered. He is instructed to return to the emerge part if he develops any change or worsening symptoms. He verbalized understanding of the diagnosis, treatment plan and follow-up instructions all of his questions were answered. - Differential Diagnosis External hemorrhoid, internal hemorrhoid, rectal fissure, GI bleed Critical care attestation.: If time is entered above; I have spent that time in minutes in the direct care of this critically ill patient, excluding procedure time. ED Disposition Clinical Impression: Internal hemorrhoid Disposition: DC- TO HOME OR SELFCARE Is pt being admited?: No Condition: Stable Instructions: Hemorrhoids, [id number] Prescriptions: Hydrocortisone [Anucort-HC SUPPOS] 25 mg RC BID #20 supp.rect Docusate Sodium [Colace] 100 mg PO BID #30 capsule Lidocaine Topical 2% 30Ml [Xylocaine Topical 2% 30Ml] 0 ml MM Q6HR #1 tube Forms: Work/School Release Form(ED) Time of Disposition: 14:31
== END 2020-03-03 14:35 | disposition home or self-care (01) ==
LOC: ED 11:36
DX: K64.8 Other hemorrhoids (principal); Z98.890 Other specified postprocedural states; Z79.1 Long term (current) use of non-steroidal anti-inflammatories (NSAID); Z79.2 Long term (current) use of antibiotics; Z79.899 Other long term (current) drug therapy; Z88.0 Allergy status to penicillin
CPT/HCPCS: 99282

== ENCOUNTER 2020-12-06 09:20 | Emergency (ER) | payer OTHER, MEDICARE ==
--- NOTE | 2020-12-06 13:14 | Emergency Department Report ---
ED General Adult HPI - General Chief complaint: Pain General Stated complaint: BODY ACHES Time Seen by Provider: 12/06/20 12:59 Source: patient Mode of arrival: Ambulatory Limitations: No Limitations - History of Present Illness Initial comments: 40-year-old -Burm[place] male presents to the emergency room complaining of body aches for 3 days. Patient is taking nothing for symptoms. Patient states that he has been vaccinated for Covid. He states he had a negative Covid test on November 22, 2020. Patient denies any past medical history and currently takes no medications on a daily basis. Patient reports he does not have a primary care provider. That he just comes to the emergency room as his primary care provider. Onset/Timin -: days(s) Location: head Severity scale (0 -10): 6 Quality: aching Improves with: none Worsens with: none Associated Symptoms: denies other symptoms Treatments Prior to Arrival: none - Related Data Previous Rx's Medication Instructions Recorded Last Taken Type Amoxicillin [Amoxicillin TAB] 875 mg PO BID #20 tablet 07/13/16 Unknown Rx Neomy/Polymyx B/Hc (Otic) Soln 4 drops OTIC TID 5 Days bottle 07/13/16 Unknown Rx [Cortisporin (Otic) Soln] Prednisone [predniSONE (Mary) ER 50 mg PO QDAY #5 tablet. 07/13/16 Unknown Rx TAB] traMADoL [Ultram 50 MG tab] 50 mg PO Q4HR PRN #12 tablet 08/27/16 Unknown Rx Azithromycin [Zithromax Z-BENJI] 250 mg PO DAILY #6 tab 04/15/18 Unknown Rx Acetaminophen [Tylenol Arthritis] 650 mg PO Q6HR PRN #30 tablet.er 06/07/18 Unknown Rx Chlorhexidine Mouthwash [Peridex] 15 ml MM BID #1 bottle 06/07/18 Unknown Rx Fluticasone [Flonase] 1 spray NS QDAY #1 bottle 06/07/18 Unknown Rx Ibuprofen [Motrin] 600 mg PO Q8H PRN #30 tablet 06/07/18 Unknown Rx guaiFENesin [Mucinex] 600 mg PO BID #30 tab.er.12h 06/07/18 Unknown Rx Cyclobenzaprine [Flexeril 10 MG 10 mg PO QHS #15 tablet 08/28/18 Unknown Rx TAB] Diclofenac Sodium 50 mg PO BID #30 tablet. 08/28/18 Unknown Rx Triamcinolone 0.1% [Kenalog 0.1% 1 applic TP TID #1 tube 08/28/18 Unknown Rx CREAM] Albuterol Mdi (or & Nicu Only) 2 puff IH QID PRN #1 inhalation 09/21/18 Unknown Rx [ProAir HFA Inhaler] Azithromycin [Zithromax Z-BENJI] 250 mg PO DAILY #6 tablet 09/21/18 Unknown Rx guaiFENesin/CODEINE [Robitussin AC] 10 ml PO Q6HR PRN #100 oral.liqd 09/21/18 Unknown Rx predniSONE [Deltasone] 20 mg PO QDAY #5 tab 09/21/18 Unknown Rx Cyclobenzaprine [Flexeril] 10 mg PO TID PRN #20 tablet 11/16/18 Unknown Rx Hydrocortisone 1% [Hydrocortisone 1 applicatio TP TID 7 Days #1 tube 11/16/18 Unknown Rx 1% CREAM] Ibuprofen [Motrin 800 MG tab] 800 mg PO Q8HR PRN #15 tablet 11/16/18 Unknown Rx Hydrocortisone 1% [Hydrocortisone 1 applicatio TP TID #1 tube 01/22/19 Unknown Rx 1% CREAM] Cyclobenzaprine [Flexeril] 10 mg PO QHS PRN #10 tablet 04/05/19 Unknown Rx Naproxen 500 mg PO Q12H PRN #20 tablet 04/05/19 Unknown Rx Docusate Sodium [Colace] 100 mg PO BID #30 capsule 03/03/20 Unknown Rx Hydrocortisone [Anucort-HC SUPPOS] 25 mg RC BID #20 supp.rect 03/03/20 Unknown Rx Lidocaine Topical 2% 30Ml 0 ml MM Q6HR #1 tube 03/03/20 Unknown Rx [Xylocaine Topical 2% 30Ml] Allergies Allergy/AdvReac Type Severity Reaction Status Date / Time Penicillins Allergy Angioedema Verified 09/21/18 09:53 ED Review of Systems ROS: Stated complaint: BODY ACHES Other details as noted in HPI Comment: All other systems reviewed and negative ED Past Medical Hx - Past Medical History Previous Medical History?: No - Surgical History Past Surgical History?: Yes Additional Surgical History: Left Ear - Social History Smoking Status: Never Smoker Substance Use Type: None - Medications Home Medications: Home Medications Medication Instructions Recorded Confirmed Last Taken Type Amoxicillin [Amoxicillin TAB] 875 mg PO BID #20 tablet 07/13/16 Unknown Rx Neomy/Polymyx B/Hc (Otic) Soln 4 drops OTIC TID 5 Days bottle 07/13/16 Unknown Rx [Cortisporin (Otic) Soln] Prednisone [predniSONE (Mary) ER 50 mg PO QDAY #5 tablet. 07/13/16 Unknown Rx TAB] traMADoL [Ultram 50 MG tab] 50 mg PO Q4HR PRN #12 tablet 08/27/16 Unknown Rx Azithromycin [Zithromax Z-BENJI] 250 mg PO DAILY #6 tab 04/15/18 Unknown Rx Acetaminophen [Tylenol Arthritis] 650 mg PO Q6HR PRN #30 tablet.er 06/07/18 Unknown Rx Chlorhexidine Mouthwash [Peridex] 15 ml MM BID #1 bottle 06/07/18 Unknown Rx Fluticasone [Flonase] 1 spray NS QDAY #1 bottle 06/07/18 Unknown Rx Ibuprofen [Motrin] 600 mg PO Q8H PRN #30 tablet 06/07/18 Unknown Rx guaiFENesin [Mucinex] 600 mg PO BID #30 tab.er.12h 06/07/18 Unknown Rx Cyclobenzaprine [Flexeril 10 MG 10 mg PO QHS #15 tablet 08/28/18 Unknown Rx TAB] Diclofenac Sodium 50 mg PO BID #30 tablet. 08/28/18 Unknown Rx Triamcinolone 0.1% [Kenalog 0.1% 1 applic TP TID #1 tube 08/28/18 Unknown Rx CREAM] Albuterol Mdi (or & Nicu Only) 2 puff IH QID PRN #1 inhalation 09/21/18 Unknown Rx [ProAir HFA Inhaler] Azithromycin [Zithromax Z-BENJI] 250 mg PO DAILY #6 tablet 09/21/18 Unknown Rx guaiFENesin/CODEINE [Robitussin AC] 10 ml PO Q6HR PRN #100 oral.liqd 09/21/18 Unknown Rx predniSONE [Deltasone] 20 mg PO QDAY #5 tab 09/21/18 Unknown Rx Cyclobenzaprine [Flexeril] 10 mg PO TID PRN #20 tablet 11/16/18 Unknown Rx Hydrocortisone 1% [Hydrocortisone 1 applicatio TP TID 7 Days #1 tube 11/16/18 Unknown Rx 1% CREAM] Ibuprofen [Motrin 800 MG tab] 800 mg PO Q8HR PRN #15 tablet 11/16/18 Unknown Rx Hydrocortisone 1% [Hydrocortisone 1 applicatio TP TID #1 tube 01/22/19 Unknown Rx 1% CREAM] Cyclobenzaprine [Flexeril] 10 mg PO QHS PRN #10 tablet 04/05/19 Unknown Rx Naproxen 500 mg PO Q12H PRN #20 tablet 04/05/19 Unknown Rx Docusate Sodium [Colace] 100 mg PO BID #30 capsule 03/03/20 Unknown Rx Hydrocortisone [Anucort-HC SUPPOS] 25 mg RC BID #20 supp.rect 03/03/20 Unknown Rx Lidocaine Topical 2% 30Ml 0 ml MM Q6HR #1 tube 03/03/20 Unknown Rx [Xylocaine Topical 2% 30Ml] ED Physical Exam - General Limitations: No Limitations General appearance: alert, in no apparent distress - Head Head exam: Present: atraumatic, normocephalic - Eye Eye exam: Present: normal appearance - ENT ENT exam: Present: mucous membranes moist - Neck Neck exam: Present: normal inspection - Respiratory Respiratory exam: Present: normal lung sounds bilaterally. Absent: respiratory distress - Cardiovascular Cardiovascular Exam: Present: regular rate, normal rhythm. Absent: systolic murmur, diastolic murmur, rubs, gallop - GI/Abdominal GI/Abdominal exam: Present: soft, normal bowel sounds - Rectal Rectal exam: Present: deferred - Extremities Exam Extremities exam: Present: normal inspection - Back Exam Back exam: Present: normal inspection - Neurological Exam Neurological exam: Present: alert, oriented X3 - Psychiatric Psychiatric exam: Present: normal affect, normal mood - Skin Skin exam: Present: warm, dry, intact, normal color. Absent: rash ED Course Vital Signs 12/06/20 12:34 Temperature 98.0 F Pulse Rate 62 Respiratory 18 Rate Blood Pressure 155/108 [Right] O2 Sat by Pulse 99 Oximetry ED Medical Decision Making - Medical Decision Making 40-year-old -Burm[place] male presents to the emergency room complaining of body aches for 3 days. Patient is taking nothing for symptoms. Patient states that he has been vaccinated for Covid. He states he had a negative Covid test on November 22, 2020. Patient denies any past medical history and currently takes no medications on a daily basis. Patient reports he does not have a primary care provider. That he just comes to the emergency room as his primary care provider. Discussed with patient he can take Tylenol or ibuprofen for body aches. Follow- up with your primary care provider. Patient is asymptomatic hypertension. Patient to be followed outpatient Critical care attestation.: If time is entered above; I have spent that time in minutes in the direct care of this critically ill patient, excluding procedure time. ED Disposition Clinical Impression: Generalized body aches Disposition: 01 HOME / SELF CARE / HOMELESS Is pt being admited?: No Does the pt Need Aspirin: No Condition: Stable Instructions: Musculoskeletal Pain Additional Instructions: You can take ibuprofen or Tylenol for body aches. Follow-up with your primary care provider. Referrals: BRIGID CHILDRESS MD [Primary Care Provider] - 3-5 Days KRIS ARCINIEGA MD [Staff Physician] - 3-5 Days Forms: Work/School Release Form(ED) Time of Disposition: 13:16
[2020-12-06 14:37] VITALS: BP 115/83
== END 2020-12-06 14:37 | disposition home or self-care (01) ==
LOC: ED 09:20
DX: M79.18 Myalgia, other site (principal); Z98.890 Other specified postprocedural states; Z79.899 Other long term (current) drug therapy
CPT/HCPCS: 99282

== ENCOUNTER 2021-11-21 07:46 | Emergency (ER) | payer OTHER, MEDICARE ==
--- NOTE | 2021-11-21 08:33 | XRay Report ---
CHEST 2 VIEWS INDICATION: Chest Pain. COMPARISON: 09/21/2018 FINDINGS: SUPPORT DEVICES: None. HEART: Within normal limits. LUNGS/PLEURA: No acute air space or interstitial disease. No pneumothorax. ADDITIONAL FINDINGS: None. IMPRESSION: 1. No acute findings. Signer Name: Braulio Vincent MD Signed: 11/21/2021 8:29 AM Workstation Name: [id number][id number]
[2021-11-21 09:42] LABS: Hematocrit 40.7 % (35.5-45.6); Hemoglobin 13.5 gm/dl (11.8-15.2); Mean Corpuscular HGB Conc 33 % (32-34); Mean Corpuscular Volume 85 fl (84-94); Platelet Count 244 K/mm3 (140-440); Red Cell Distribution Width 13.2 % (13.2-15.2)
[2021-11-21 10:04] LABS: Alanine Aminotransferase 30 units/L (7-56); Albumin 4.4 g/dL (3.9-5); BUN/Creatinine Ratio 14; Blood Urea Nitrogen 11 mg/dL (9-20); Hemolysis Index 9
[2021-11-21] MEDS ORDERED: ASPIRIN 81 MG TAB CHEW PO ONE (10:18)
--- NOTE | 2021-11-21 10:23 | Emergency Department Report ---
ED Chest Pain HPI - General Chief Complaint: Chest Pain Stated Complaint: CHEST PAIN Time Seen by Provider: 11/21/21 09:00 Source: patient Mode of arrival: Ambulatory Limitations: No Limitations - History of Present Illness Initial Comments: 41-year-old male with no significant past medical history who now presents with left-sided chest pain radiating to the left arm and forearm for the last 3 days worse in the last couple of hours. Patient reported that he has been working double shifts the last couple of weeks with intense stress. He also noted that his blood pressure was high but not on blood pressure medication. No cough, fever or chills reported. No palpitation or any other modifying or associated factors noted. MD Complaint: chest pain Severity scale (0 -10): 0 - Related Data Previous Rx's Medication Instructions Recorded Last Taken Type Amoxicillin [Amoxicillin TAB] 875 mg PO BID #20 tablet 07/13/16 Unknown Rx Neomy/Polymyx B/Hc (Otic) Soln 4 drops OTIC TID 5 Days bottle 07/13/16 Unknown Rx [Cortisporin (Otic) Soln] Prednisone [predniSONE (Mary) ER 50 mg PO QDAY #5 tablet. 07/13/16 Unknown Rx TAB] traMADoL [Ultram 50 MG tab] 50 mg PO Q4HR PRN #12 tablet 08/27/16 Unknown Rx Azithromycin [Zithromax Z-BENJI] 250 mg PO DAILY #6 tab 04/15/18 Unknown Rx Acetaminophen [Tylenol Arthritis] 650 mg PO Q6HR PRN #30 tablet.er 06/07/18 Unknown Rx Chlorhexidine Mouthwash [Peridex] 15 ml MM BID #1 bottle 06/07/18 Unknown Rx Fluticasone [Flonase] 1 spray NS QDAY #1 bottle 06/07/18 Unknown Rx Ibuprofen [Motrin] 600 mg PO Q8H PRN #30 tablet 06/07/18 Unknown Rx guaiFENesin [Mucinex] 600 mg PO BID #30 tab.er.12h 06/07/18 Unknown Rx Cyclobenzaprine [Flexeril 10 MG 10 mg PO QHS #15 tablet 08/28/18 Unknown Rx TAB] Diclofenac Sodium 50 mg PO BID #30 tablet. 08/28/18 Unknown Rx Triamcinolone 0.1% [Kenalog 0.1% 1 applic TP TID #1 tube 08/28/18 Unknown Rx CREAM] Albuterol Mdi (or & Nicu Only) 2 puff IH QID PRN #1 inhalation 09/21/18 Unknown Rx [ProAir HFA Inhaler] Azithromycin [Zithromax Z-BENJI] 250 mg PO DAILY #6 tablet 09/21/18 Unknown Rx guaiFENesin/CODEINE [Robitussin AC] 10 ml PO Q6HR PRN #100 oral.liqd 09/21/18 Unknown Rx predniSONE [Deltasone] 20 mg PO QDAY #5 tab 09/21/18 Unknown Rx Cyclobenzaprine [Flexeril] 10 mg PO TID PRN #20 tablet 11/16/18 Unknown Rx Hydrocortisone 1% [Hydrocortisone 1 applicatio TP TID 7 Days #1 tube 11/16/18 Unknown Rx 1% CREAM] Ibuprofen [Motrin 800 MG tab] 800 mg PO Q8HR PRN #15 tablet 11/16/18 Unknown Rx Hydrocortisone 1% [Hydrocortisone 1 applicatio TP TID #1 tube 01/22/19 Unknown Rx 1% CREAM] Cyclobenzaprine [Flexeril] 10 mg PO QHS PRN #10 tablet 04/05/19 Unknown Rx Naproxen 500 mg PO Q12H PRN #20 tablet 04/05/19 Unknown Rx Docusate Sodium [Colace] 100 mg PO BID #30 capsule 03/03/20 Unknown Rx Hydrocortisone [Anucort-HC SUPPOS] 25 mg RC BID #20 supp.rect 03/03/20 Unknown Rx Lidocaine Topical 2% 30Ml 0 ml MM Q6HR #1 tube 03/03/20 Unknown Rx [Xylocaine Topical 2% 30Ml] hydrOXYzine PAMOATE [Vistaril] 50 mg PO Q6HR PRN 5 Days #15 11/21/21 Unknown Rx capsule NS predniSONE [Deltasone] 20 mg PO QDAY 5 Days #5 tab NS 11/21/21 Unknown Rx Allergies Allergy/AdvReac Type Severity Reaction Status Date / Time Penicillins Allergy Angioedema Verified 11/21/21 08:02 Heart Score - HEART Score History: Slightly suspicious EKG: Normal Age: < 45 Risk factors: No known risk factors Troponin: < normal limit HEART Score: 0 - EKG Read Time Time EKG Completed: 08:06 EKG Read Time: 08:11 - Critical Actions Critical Actions: 0-3 pts:0.9-1.7%risk of adverse cardiac event.Candidate for discharge ED Review of Systems ROS: Stated complaint: CHEST PAIN Other details as noted in HPI Comment: All other systems reviewed and negative Respiratory: denies: cough Cardiovascular: chest pain. denies: palpitations ED Past Medical Hx - Surgical History Additional Surgical History: Left Ear - Social History Smoking Status: Never Smoker Substance Use Type: None - Medications Home Medications: Home Medications Medication Instructions Recorded Confirmed Last Taken Type Amoxicillin [Amoxicillin TAB] 875 mg PO BID #20 tablet 07/13/16 Unknown Rx Neomy/Polymyx B/Hc (Otic) Soln 4 drops OTIC TID 5 Days bottle 07/13/16 Unknown Rx [Cortisporin (Otic) Soln] Prednisone [predniSONE (Mary) ER 50 mg PO QDAY #5 tablet. 07/13/16 Unknown Rx TAB] traMADoL [Ultram 50 MG tab] 50 mg PO Q4HR PRN #12 tablet 08/27/16 Unknown Rx Azithromycin [Zithromax Z-BENJI] 250 mg PO DAILY #6 tab 04/15/18 Unknown Rx Acetaminophen [Tylenol Arthritis] 650 mg PO Q6HR PRN #30 tablet.er 06/07/18 Unknown Rx Chlorhexidine Mouthwash [Peridex] 15 ml MM BID #1 bottle 06/07/18 Unknown Rx Fluticasone [Flonase] 1 spray NS QDAY #1 bottle 06/07/18 Unknown Rx Ibuprofen [Motrin] 600 mg PO Q8H PRN #30 tablet 06/07/18 Unknown Rx guaiFENesin [Mucinex] 600 mg PO BID #30 tab.er.12h 06/07/18 Unknown Rx Cyclobenzaprine [Flexeril 10 MG 10 mg PO QHS #15 tablet 08/28/18 Unknown Rx TAB] Diclofenac Sodium 50 mg PO BID #30 tablet. 08/28/18 Unknown Rx Triamcinolone 0.1% [Kenalog 0.1% 1 applic TP TID #1 tube 08/28/18 Unknown Rx CREAM] Albuterol Mdi (or & Nicu Only) 2 puff IH QID PRN #1 inhalation 09/21/18 Unknown Rx [ProAir HFA Inhaler] Azithromycin [Zithromax Z-BENJI] 250 mg PO DAILY #6 tablet 09/21/18 Unknown Rx guaiFENesin/CODEINE [Robitussin AC] 10 ml PO Q6HR PRN #100 oral.liqd 09/21/18 Unknown Rx predniSONE [Deltasone] 20 mg PO QDAY #5 tab 09/21/18 Unknown Rx Cyclobenzaprine [Flexeril] 10 mg PO TID PRN #20 tablet 11/16/18 Unknown Rx Hydrocortisone 1% [Hydrocortisone 1 applicatio TP TID 7 Days #1 tube 11/16/18 Unknown Rx 1% CREAM] Ibuprofen [Motrin 800 MG tab] 800 mg PO Q8HR PRN #15 tablet 11/16/18 Unknown Rx Hydrocortisone 1% [Hydrocortisone 1 applicatio TP TID #1 tube 01/22/19 Unknown Rx 1% CREAM] Cyclobenzaprine [Flexeril] 10 mg PO QHS PRN #10 tablet 04/05/19 Unknown Rx Naproxen 500 mg PO Q12H PRN #20 tablet 04/05/19 Unknown Rx Docusate Sodium [Colace] 100 mg PO BID #30 capsule 03/03/20 Unknown Rx Hydrocortisone [Anucort-HC SUPPOS] 25 mg RC BID #20 supp.rect 03/03/20 Unknown Rx Lidocaine Topical 2% 30Ml 0 ml MM Q6HR #1 tube 03/03/20 Unknown Rx [Xylocaine Topical 2% 30Ml] hydrOXYzine PAMOATE [Vistaril] 50 mg PO Q6HR PRN 5 Days #15 11/21/21 Unknown Rx capsule NS predniSONE [Deltasone] 20 mg PO QDAY 5 Days #5 tab NS 11/21/21 Unknown Rx ED Physical Exam - General Limitations: No Limitations General appearance: alert, in no apparent distress - Head Head exam: Present: normal inspection - Eye Eye exam: Present: normal appearance Pupils: Present: normal accommodation - ENT ENT exam: Present: normal exam, normal orophraynx, mucous membranes moist - Neck Neck exam: Present: normal inspection, full ROM. Absent: tenderness - Respiratory Respiratory exam: Present: normal lung sounds bilaterally. Absent: respiratory distress, accessory muscle use - Cardiovascular Cardiovascular Exam: Present: regular rate, normal rhythm, normal heart sounds - GI/Abdominal GI/Abdominal exam: Present: soft, normal bowel sounds. Absent: distended, tenderness - Extremities Exam Extremities exam: Present: normal inspection, full ROM, normal capillary refill. Absent: tenderness - Back Exam Back exam: Absent: tenderness - Neurological Exam Neurological exam: Present: alert, oriented X3 - Psychiatric Psychiatric exam: Present: normal affect, normal mood - Skin Skin exam: Present: warm, normal color ED Course Vital Signs 11/21/21 11/21/21 11/21/21 08:00 09:34 11:03 Temperature 97.9 F Pulse Rate 68 74 65 Respiratory 18 17 17 Rate Blood Pressure 166/117 120/85 144/100 [Left] O2 Sat by Pulse 96 99 99 Oximetry CALE score - Cale Score Age > 65: (0) No Aspirin use within the Past 7 Days: (0) No 3 or more CAD Risk Factors: (0) No 2 or more Angina events in past 24 hrs: (0) No Known CAD with more than 50% Stenosis: (0) No Elevated Cardiac Markers: (0) No ST Deviation Greater than 0.5mm: (0) No CALE Score: 0 ED Medical Decision Making - Lab Data Result diagrams: 11/21/21 09:17 11/21/21 09:17 - EKG Data -: EKG Interpreted by Ut EKG shows normal: sinus rhythm Rate: normal - EKG Data 11/21/21 10:22 Noted with normal sinus rhythm at a rate of 61 bpm with normal QT and no ST d epression or elevation in this normal ECG. - Medical Decision Making Here with chest pain/pressure--differential could be but not limited to myocardial infarction, pulmonary embolism, costochondritis, anxiety, gastritis, GERD, pancreatitis, and or pyelonephritis--in order to rule out the above-- so will go ahead and order routine cardiopulmonary work-up that include troponin, EKG, chest x-ray, BNP, CKMB, and CBC, CMP and urinalysis for any correctable infectious process or electrolyte abnormality as a cause. In the meantime we will go ahead and give aspirin 324 mg p.o. x1 while waiting for the above work-up labs and imaging Initial EKG is completely normal with no ST elevation or depression with normal initial troponin-- with this patient very low CALE or Heart Scores this is likely non cardiac and more of anxiety and muscular-- will discharge home on short course of Vistaril and Prednisone with close follow up -- Critical care attestation.: If time is entered above; I have spent that time in minutes in the direct care of this critically ill patient, excluding procedure time. ED Disposition Clinical Impression: Non-cardiac chest pain, Anxiety, Muscular aches Disposition: 01 HOME / SELF CARE / HOMELESS Is pt being admited?: No Does the pt Need Aspirin: No Condition: Stable Instructions: Musculoskeletal Pain, Managing Anxiety, Adult, Nonspecific Chest Pain, Adult, [id number], Nonspecific Chest Pain, Adult Additional Instructions: Take your new medications Vistaril and Prednisone as prescribed to help your symptoms Call and follow up with your doctor in the next 3-5 days for progress Please do not hesitate to call or return to eD if your symptoms worsen Prescriptions: predniSONE [Deltasone] 20 mg PO QDAY 5 Days #5 tab NS hydrOXYzine PAMOATE [Vistaril] 50 mg PO Q6HR PRN 5 Days #15 capsule NS PRN Reason: Chest Pain Unrelieved By Ntg Referrals: JEOVANY WILCOX MD [Referring] - 3-5 Days Time of Disposition: 12:35
[2021-11-21 10:58] LABS: Partial Thromboplastin Time 30.1 Sec. (24.2-36.6)
[2021-11-21 11:00] LABS: INR 0.84 (0.87-1.13)
[2021-11-21 11:06] LABS: Basophils % (Manual) 0 % (0.0-1.8); Total Cells Counted 100
[2021-11-21 11:07] LABS: Platelet Estimate Consistent w Auto; RBC Morphology Normal
[2021-11-21 12:57] VITALS: BP 135/99
--- NOTE | 2021-11-23 10:13 | Electrocardiograph Report ---
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
== END 2021-11-21 12:59 | disposition home or self-care (01) ==
LOC: ED 07:46
DX: R07.9 Chest pain, unspecified (principal); F41.9 Anxiety disorder, unspecified; M79.10 Myalgia, unspecified site; F17.200 Nicotine dependence, unspecified, uncomplicated
CPT/HCPCS: 36415; 71046; 80053; 84484; 85007; 85025; 85610; 85730; 93005; 99284

== ENCOUNTER 2021-12-03 01:26 | Emergency (ER) | payer OTHER, MEDICARE ==
[2021-12-03 01:34] VITALS: BP 135/88
== END 2021-12-03 04:15 | disposition left against medical advice (07) ==
LOC: ED 01:26
DX: M54.50 Low back pain, unspecified (principal); Z53.21 Procedure and treatment not carried out due to patient leaving prior to being seen by health care provider